=== PATIENT | female | born 1930 | race Caucasian/White ===

== ENCOUNTER 2018-08-25 18:36 | Emergency (ER) | payer MEDICARE, OTHER ==
[~2018-08-25 18:36] MED LIST: AFRIN30 ML; ALDACTONE25 MG PO; ALLERGY25 MG PO; ALPRAZOLAM0.25 M1 PO; AMBIEN5 MG PO; ASPIRIN325 MG PO; ASPIRIN81 M3 PO; CARDURA2 MG PO; CARVEDILOL3.125 MG PO; COUMADIN6 MG PO; FUROSEMIDE20 MG PO; FUROSEMIDE40 MG PO; KLOR-CON M2020 MEQ PO; LACTULOSE20 GM/30 M PO; LISINOPRIL5 MG PO; LORATADINE10 MG PO; LYRICA150 MG PO; METOPROLOL TART25 MG PO; MINOCYCLINE HC100 MG PO; MIRAPEX0.25 MG PO; MIRTAZAPINE15 MG PO; NORCO 5-325 TA1 EACH PO; OMEPRAZOLE20 MG PO; PANTOPRAZOLE SO40 MG PO; PAROXETINE HCL10 MG PO; POTASSIUM CHLO20 ME1 PO; PRAMIPEXOLE D0.25 MG PO; RESTORIL15 MG PO; SINEMET 25-1001 EACH PO; SYNTHROID88 MCG PO; TYLENOL EXTRA500 MG PO; VICODIN 5-5001 EACH PO; WELLBUTRIN75 MG PO; XANAX0.25 MG PO; XARELTO20 MG PO; Z MELATONIN PO; Z.0.AMANTADINE100 MG PO; Z.0.CYMBALTA30 MG PO; Z.0.LISINOPRIL10 MG PO; Z.0.LISINOPRIL5 MG PO; Z.0.METOPROLOL SUCC2 PO; Z.0.NORCO 10-325 T1 PO; Z.0.SYNTHROID100 MCG PO; Z.0.XANAX0.25 MG PO; ZOFRAN4 MG PO; ZOLOFT25 MG PO; [UNRECOGNIZED DRUG - OTHER] PO; [UNRECOGNIZED DRUG - OTHER] TOP; vicoden PO
--- OUTSIDE RECORDS SUMMARY | 2018-08-25 18:41 | XMS REPORT | Summary of Care ---
Author Author [facility] Organization [facility] Address Unknown Phone Unavailable Encounter GERRI Mcmillan(ERVIN) [id number] Date(s): 03/13/15 - 03/18/15 [facility] [address] [employer] provided by [employer] [facility] [employer] [place] [address]- Discharge Disposition: Custodial Facility Attending Physician: Kiara Saucedo MD Admitting Physician: Kiara Saucedo MD Referring Physician: Jose North MD Vital Signs 1 2 3 Most recent to oldest [Reference Range]: 152 cm (03/16/15 5:12 AM) 152.4 cm (03/13/15 3:34 PM) 152.4 cm (03/13/15 3:09 PM) Height 1 2 3 Most recent to oldest [Reference Range]: 45 kg (03/16/15 5:12 AM) 45.2 kg (03/14/15 5:55 AM) Current Weight 1 2 3 Most recent to oldest [Reference Range]: 98.2 DegF (03/18/15 11:53 AM) 97.8 DegF (03/18/15 11:48 AM) 97.6 DegF (03/18/15 7:43 AM) Temperature Oral [96.4-99.1 DegF] 1 2 3 Most recent to oldest [Reference Range]: 119/68 mmHg (03/18/15 11:51 AM) 130/75 mmHg (03/18/15 11:48 AM) 139/84 mmHg (03/18/15 7:43 AM) Blood Pressure [90-140/60-90 mmHg] 1 2 3 Most recent to oldest [Reference Range]: 20 BRMIN (03/18/15 11:51 AM) 20 BRMIN (03/18/15 11:48 AM) 20 BRMIN (03/18/15 7:43 AM) Respiratory Rate [14-20 BRMIN] 1 2 3 Most recent to oldest [Reference Range]: 70 bpm (03/18/15 11:48 AM) 70 bpm (03/18/15 7:43 AM) 70 bpm (03/18/15 3:27 AM) Peripheral Pulse Rate [60-100 bpm] 1 2 3 Most recent to oldest [Reference Range]: 43.182 kg (03/13/15 3:34 PM) 40.909 kg (03/13/15 3:09 PM) 60 kg (03/13/15 10:48 AM) Weight 1 2 3 Most recent to oldest [Reference Range]: 18.59 m2 (03/13/15 3:34 PM) 17.61 m2 (03/13/15 3:09 PM) Body Mass Index Problem List Condition Effective Dates Status Health Status Informant A-fib(Confirmed) Resolved Anxiety(Confirmed) Resolved Cardiac Resolved pacemaker(Confirmed) CHF - Congestive Resolved heart failure(Confirmed) Closed hip Resolved fracture(Confirmed)1 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 (Same as: Tylenol) Start Date: 03/14/15 Stop Date: 03/17/15 Status: Discontinued Aldactone 25 mg oral tablet 25 mg=1 tab, PO, PRN, # 60 tab, 0 Refill(s) Start Date: 03/13/15 Status: Ordered ALPRAZOLam 0.25 mg oral tablet, disintegrating 0.25 mg=1 tab, PO, Q12H, PRN Anxiety, 0 Refill(s) Start Date: 03/13/15 Status: Ordered Benadryl 12.5 mg, 0.25 mL, Route: IV, Drug form: INJ, ONCE, Dosing Weight 60, kg, Start d ate: 03/13/15 14:46:00, Stop date: 03/13/15 14:46:00 Notes: (Same as: Benadryl) Start Date: 03/13/15 Stop Date: 03/13/15 Status: Completed Benadryl 12.5 mg, 5 mL, Route: PO, Drug form: LIQ, TID, Dosing Weight 43.182, kg, PRN Itc daniel, Start date: 03/14/15 1:48:00, Duration: 30 day, Stop date: 04/13/15 1:47:0 0 Notes: (Same as: Benadryl) Start Date: 03/14/15 Stop Date: 03/18/15 Status: Discontinued carbidopa-levodopa 25 mg-100 mg oral tablet 1 tab, PO, QID, 0 Refill(s) Start Date: 03/18/15 Status: Ordered carbidopa-levodopa 25 mg-100 mg oral tablet 1 tab, Route: PO, Drug Form: TAB, Dosing Weight 60, kg, QID, Start date: 5 17:00:00, Duration: 30 day, Stop date: 04/12/15 13:00:00 Notes: Take with milk or food. (Same As: Sinemet) Start Date: 03/13/15 Stop Date: 03/18/15 Status: Discontinued carbidopa-levodopa 25 mg-100 mg oral tablet 1 tab, PO, QID, # 120 tab, 0 Refill(s) Start Date: 03/13/15 Status: Ordered Coreg 12.5 mg oral tablet 12.5 mg=1 tab, PO, BID, # 60 tab, 0 Refill(s) Start Date: 03/18/15 Status: Ordered Dextrose 50% Syringe 12.5 gm, 25 mL, Route: IVP, Drug Form: INJ, Dosing Weight 43.182, kg, PRN, PRN A bnormal Lab Result, Start date: 03/15/15 3:58:00, Duration: 30 day, Stop date: 06/14/14 2:57:00, For FSBG 40 mg/dL - 60 mg/dL Special Instructions: For FSBG 40 mg/dL - 60 mg/dL Start Date: 03/15/15 Stop Date: 03/15/15 Status: Discontinued Dextrose 50% Syringe 25 gm, 50 mL, Route: IVP, Drug Form: INJ, Dosing Weight 43.182, kg, PRN, PRN Abn ormal Lab Result, Start date: 03/15/15 3:58:00, Duration: 30 day, Stop date: 01/19 2:57:00, For FSBG < 40 mg/dL Special Instructions: For FSBG < 40 mg/dL Start Date: 03/15/15 Stop Date: 03/15/15 Status: Discontinued docusate 100 mg, 1 cap, Route: NG, Drug form: CAP, Q12H, Dosing Weight 60, kg, Start date : 03/13/15 21:00:00, Stop date: 04/12/15 9:00:00 Notes: (Same as: Colace) (Do Not Crush) Start Date: 03/13/15 Stop Date: 03/18/15 Status: Discontinued Enoxaparin 20 mg (0.2 mL) Enoxaparin 20 mg (0.2 mL), 20 mg, 0.2 mL, Drug form: MISC, Route: SUB-Q, enoxQ12 H, 03/15/15 12:30:00, Duration: 30 day, Stop date: 04/14/15 0:30:00 Notes: PLEASE NOTE: Using enoxaparin 30 mg syringe, draw up 0.2 mL and put in in jection syringe under IV persaud in sterile conditions. Start Date: 03/15/15 Stop Date: 03/17/15 Status: Discontinued Factor 2-7-9-10 Prothrombin Complex Concentrate 2,208 unit + IV bag 1 ea Route: IV, Drug form: INJ, ONCE, Dosing Weight 60, kg, ; Use 100kg max dosing we ight for pt >100kg. Max. cumulative dose=50 units/kg/day., Priority: STAT, Start date: 03/13/15 11:16:00, Stop date: 03/13/15 11:16:00 Notes: Same as: Benigno Maximum acdp=2090 units; Round down dose to the nearest vial size Hematology clinical pharmacist consult required Start Date: 03/13/15 Stop Date: 03/13/15 Status: Completed Factor 2-7-9-10 Prothrombin Complex Concentrate 2,208 unit + IV bag 1 ea Route: IV, Drug form: INJ, ONCE, Dosing Weight 60, kg, ; Use 100kg max dosing we ight for pt >100kg. Max. cumulative dose=50 units/kg/day., Priority: STAT, Start date: 03/13/15 10:49:00, Stop date: 03/13/15 10:49:00 Notes: Same as: Kcentra Maximum zbhx=1949 units; Round down dose to the nearest vial size Hematology clinical pharmacist consult required Start Date: 03/13/15 Stop Date: 03/13/15 Status: Deleted fosphenytoin 1,200 mg, Route: IVPB, ONCE, Dosing Weight 60, kg, Priority: STAT, Start date: 1 10:51:00, Stop date: 03/13/15 10:51:00 Start Date: 03/13/15 Stop Date: 03/13/15 Status: Completed heparin 5,000 unit, 1 mL, Route: SUB-Q, Drug form: INJ, Q12H, Start date: 03/14/15 10:30 :00, Duration: 30 day, Stop date: 04/13/15 9:00:00 Notes: porcine heparin Start Date: 03/14/15 Stop Date: 03/14/15 Status: Canceled heparin 5000 units/mL injectable solution 5000, SUB-Q, Q12H, # 1 IntlUnit, 0 Refill(s) Start Date: 03/18/15 Status: Ordered heparin 5000 units/mL injectable solution 5,000 unit, 1 mL, Route: SUB-Q, Drug form: INJ, Q12H, Dosing Weight 43.182, kg, Start date: 03/17/15 12:00:00, Duration: 30 day, Stop date: 04/16/15 0:00:00 Notes: porcine heparin Start Date: 03/17/15 Stop Date: 03/18/15 Status: Discontinued influenza virus vaccine, inactivated 0.5 mL, Route: IM, Drug Form: SUSP, Daily, Start date: 03/14/15 9:00:00, Duratio n: 1 doses or times, Stop date: 03/14/15 9:00:00 Notes: (Same as: Fluzone Quadrivalent)For 3 years of age and older (0.5 mL IM)Sh mabel well before use Start Date: 03/14/15 Stop Date: 03/14/15 Status: Completed Insulin regular 12 unit, 0.12 mL, Route: SUB-Q, Drug form: SOLN, PRN, Dosing Weight 43.182, kg, PRN Abnormal Lab Result, Start date: 03/15/15 3:58:00, Duration: 30 day, Stop da te: 04/14/15 2:57:00, For FSBG >=200 mg/dL Special Instructions: For FSBG >=200 mg/dL Notes: (Same as: Humulin R) Roll in palms of hands gently; Do not shake vigorou sly. "single patient use only"(Restricted to patients requiring a dose > 60 units) Stable for 28 days at room temperatureExpires in days from _ Date Start Date: 03/15/15 Stop Date: 03/15/15 Status: Discontinued Insulin regular 8 unit, 0.08 mL, Route: SUB-Q, Drug form: SOLN, PRN, Dosing Weight 43.182, kg, P RN Abnormal Lab Result, Start date: 03/15/15 3:58:00, Duration: 30 day, Stop aria e: 04/14/15 2:57:00, For FSBG 175 mg/dL - 199 mg/dL Special Instructions: For FSBG 175 mg/dL - 199 mg/dL Notes: (Same as: Humulin R) Roll in palms of hands gently; Do not shake vigorou sly. "single patient use only"(Restricted to patients requiring a dose > 60 units) Stable for 28 days at room temperatureExpires in days from _ Date Start Date: 03/15/15 Stop Date: 03/15/15 Status: Discontinued Insulin regular 5 unit, 0.05 mL, Route: SUB-Q, Drug form: SOLN, PRN, Dosing Weight 43.182, kg, P RN Abnormal Lab Result, Start date: 03/15/15 3:58:00, Duration: 30 day, Stop aria e: 04/14/15 2:57:00, For FSBG 150 mg/dL - 174 mg/dL Special Instructions: For FSBG 150 mg/dL - 174 mg/dL Notes: (Same as: Humulin R) Roll in palms of hands gently; Do not shake vigorou sly. "single patient use only"(Restricted to patients requiring a dose > 60 units) Stable for 28 days at room temperatureExpires in days from _ Date Start Date: 03/15/15 Stop Date: 03/15/15 Status: Discontinued Lasix 20 mg oral tablet 20 mg=1 tab, PO, Daily, # 30 tab, 0 Refill(s) Start Date: 03/13/15 Status: Ordered Lasix 20 mg oral tablet 20 mg, 1 tab, Route: PO, Drug form: TAB, Daily, Dosing Weight 60, kg, Start date : 03/14/15 9:00:00, Duration: 30 day, Stop date: 04/12/15 9:00:00 Notes: (Same as: Lasix) May cause GI upset. Give with food or milk. Start Date: 03/14/15 Stop Date: 03/18/15 Status: Discontinued lisinopril 5 mg, 1 tab, Route: PO, Drug form: TAB, Daily, Dosing Weight 60, kg, Start date: 03/14/15 9:00:00, Duration: 30 day, Stop date: 04/12/15 9:00:00 Notes: (Same as: Prinivil, Zestril) Start Date: 03/14/15 Stop Date: 03/18/15 Status: Discontinued lisinopril 5 mg oral tablet 5 mg=1 tab, PO, Daily, # 30 tab, 0 Refill(s) Start Date: 03/13/15 Stop Date: 03/18/15 Status: Discontinued Lovenox 20 mg, 0.2 mL, Route: SUB-Q, Drug form: INJ, [id number], Dosing Weight 43.182, kg, Start date: 03/14/15 10:30:00, Duration: 30 day, Stop date: 04/12/15 22:30:00 Notes: (Same as: Lovenox) Start Date: 03/14/15 Stop Date: 03/15/15 Status: Discontinued Lovenox 30 mg, Route: SUB-Q, Drug form: INJ, [id number], Dosing Weight 43.182, kg, Start d ate: 03/14/15 10:30:00, Duration: 30 day, Stop date: 04/12/15 22:30:00 Start Date: 03/14/15 Stop Date: 03/14/15 Status: Canceled Lyrica 25 mg, 1 cap, Route: PO, Drug form: CAP, Q8H, Dosing Weight 43.182, kg, Start da te: 03/14/15 0:00:00, Duration: 30 day, Stop date: 04/12/15 16:00:00 Notes: (Same as: Lyrica) Start Date: 03/14/15 Stop Date: 03/17/15 Status: Discontinued magnesium sulfate 2 gm, 50 mL, Route: IVPB, Drug form: INJ, ONCE, Dosing Weight 43.182, kg, Total dose=2 gm, Start date: 03/14/15 0:56:00, Duration: 1 doses or times, Stop date: 03/14/15 0:56:00 Start Date: 03/14/15 Stop Date: 03/14/15 Status: Completed morphine Sulfate 4 mg, Route: IVP, Drug form: INJ, ONCE, kg, Priority: STAT, Start date: 03/13/15 10:08:00, Stop date: 03/13/15 10:08:00 Start Date: 03/13/15 Stop Date: 03/13/15 Status: Completed Carlos 10/325 oral tablet 1 tab, PO, Q6H, PRN for pain, 0 Refill(s) Start Date: 03/13/15 Stop Date: 03/18/15 Status: Discontinued Carlos 7.5/325 oral tablet 1 tab, Route: PO, Drug Form: TAB, Dosing Weight 43.182, kg, Q6H, Start date: 04/21 12:00:00, Duration: 30 day, Stop date: 04/16/15 6:00:00 Notes: Same as Carlos 325-7.5mg Do not exceed 4gm/day of acetaminophen. Start Date: 03/17/15 Stop Date: 03/18/15 Status: Discontinued NS (Bolus) IV 500 mL, 500 ml/hr, Infuse Over: 1 hr, Route: IV, 500, Drug form: INJ, ONCE, Prio rity: STAT, Dosing Weight 43.182 kg, Start date: 03/14/15 15:09:00, Duration: 1 doses or times, Stop date: 03/14/15 15:09:00 Start Date: 03/14/15 Stop Date: 03/14/15 Status: Completed nystatin topical 100,000 units/g powder 1 appl, TOP, BID, # 15 gm, 0 Refill(s) Start Date: 03/18/15 Stop Date: 03/22/15 Status: Ordered nystatin topical 100,000 units/g powder 1 appl, Route: TOP, BID, Drug form: PWDR, Start date: 03/16/15 9:00:00, Duration : 30 day, Stop date: 04/14/15 17:00:00 Notes: (Same as:Mycostatin, Nilstat) For external use only. Start Date: 03/16/15 Stop Date: 03/18/15 Status: Discontinued Ofirmev 1,000 mg, 100 mL, Route: IV, Drug form: INJ, Q6H, Dosing Weight 43.182, kg, for > or=50 kg, Start date: 03/14/15 19:00:00, Duration: 30 day, Stop date: 04/13/15 18:00:00 Notes: Infuse over 15 minutesDo not exceed 4gm/day of acetaminophen MEDICAT ION WASTE Product Size: 1000 mgProduct Wasted: ___ mg Start Date: 03/14/15 Stop Date: 03/14/15 Status: Canceled oxyCODONE 5 mg immediate release 5 mg, 1 tab, Route: PO, Drug form: TAB, Q6H, Dosing Weight 43.182, kg, PRN Pain Score 4-6, Start date: 03/14/15 9:40:00, Duration: 30 day, Stop date: 04/13/15 9 :39:00 Notes: (Same as: Roxicodone) Start Date: 03/14/15 Stop Date: 03/17/15 Status: Discontinued oxyCODONE 5 mg immediate release 5 mg, 1 tab, Route: PO, Drug form: TAB, Q6H, Dosing Weight 43.182, kg, Start aria e: 03/14/15 0:00:00, Duration: 30 day, Stop date: 04/12/15 18:00:00 Notes: (Same as: Roxicodone) Start Date: 03/14/15 Stop Date: 03/14/15 Status: Discontinued phenytoin 100 mg, 1 cap, Route: PO, Drug form: ERCAP, Q12H, Dosing Weight 43.182, kg, Star t date: 03/14/15 21:00:00, Duration: 6 day, Stop date: 03/20/15 9:00:00 Notes: (Same as: Dilantin) Do not open, crush, or chew. Start Date: 03/14/15 Stop Date: 03/18/15 Status: Discontinued phenytoin 100 mg, 2 mL, Route: IV, Drug form: INJ, Q8H, Dosing Weight 60, kg, Start date: 03/13/15 19:00:00, Duration: 30 day, Stop date: 04/12/15 16:00:00 Notes: (Same as: Dilantin) Do not infuse greater than 50 mg/min. MEDICATION WASTE Product Size: 100 mgProduct Wasted: ___ mg Start Date: 03/13/15 Stop Date: 03/14/15 Status: Discontinued phenytoin 100 mg oral capsule, extended release 100 mg=1 cap, PO, Q12H, PRN Pain Score 6-10, # 30 cap, 0 Refill(s) Start Date: 03/18/15 Stop Date: 03/31/15 Status: Ordered PlasmaLyte A PH-7.4 (Bolus) IV 500 mL, 500 ml/hr, Route: IV, Drug Form: INJ, Dosing Weight 43.182, kg, ONCE, St art date: 03/13/15 20:40:00, Stop date: 03/13/15 20:40:00 Start Date: 03/13/15 Stop Date: 03/13/15 Status: Completed pneumococcal 23-valent vaccine 0.5 mL, Route: IM, Drug Form: INJ, Daily, Start date: 03/14/15 9:00:00, Duration : 1 doses or times, Stop date: 03/14/15 9:00:00 Notes: (Same as: Pneumovax 23) Refrigerate Start Date: 03/14/15 Stop Date: 03/14/15 Status: Completed potassium chloride 20 mEq oral tablet, extended release 20 mEq=1 tab, PO, Daily, # 30 tab, 3 Refill(s) Start Date: 03/13/15 Status: Ordered pramipexole 0.25 mg, 1 tab, Route: PO, Drug form: TAB, TID, Dosing Weight 60, kg, Start date : 03/13/15 17:00:00, Duration: 30 day, Stop date: 04/12/15 13:00:00 Notes: (Same as: Mirapex) Start Date: 03/13/15 Stop Date: 03/18/15 Status: Discontinued pramipexole 0.25 mg oral tablet 0.25 mg=1 tab, PO, TID, # 90 tab, 0 Refill(s) Start Date: 03/13/15 Status: Ordered Senna 187mg 1 tab, Route: PO, Dosing Weight 43.182, kg, BID, Start date: 03/14/15 17:00:00, Duration: 30 day, Stop date: 04/13/15 9:00:00 Start Date: 03/14/15 Stop Date: 03/14/15 Status: Discontinued senna 8.6 mg oral tablet 17.2 mg=2 tab, PO, Q12H, # 12 tab, 0 Refill(s) Start Date: 03/18/15 Stop Date: 03/24/15 Status: Ordered Senokot 17.2 mg, 2 tab, Route: PO, Drug form: TAB, Q12H, Start date: 03/14/15 21:00:00, Duration: 30 day, Stop date: 04/13/15 9:00:00 Notes: (Same as: Senokot) Start Date: 03/14/15 Stop Date: 03/18/15 Status: Discontinued Synthroid 112 microgram, 1 tab, Route: PO, Drug form: TAB, [id number], Dosing Weight 60, kg, S tart date: 03/14/15 6:30:00, Duration: 30 day, Stop date: 04/12/15 6:30:00 Notes: Take 1 hour before or 2 hours after meal; Enteral feeds may interefere wi th the absorption of this medication.(Same as:Levothroid) Start Date: 03/14/15 Stop Date: 03/18/15 Status: Discontinued Synthroid 112 mcg (0.112 mg) oral tablet 112 microgram=1 tab, PO, Daily, # 30 tab, 0 Refill(s) Start Date: 03/13/15 Status: Ordered tramadol 50 mg, 1 tab, Route: PO, Drug form: TAB, Q6H, Dosing Weight 43.182, kg, Start da te: 03/14/15 0:00:00, Duration: 30 day, Stop date: 04/12/15 18:00:00 Notes: Not to exceed 400mg/day. (Same As: Ultram) Start Date: 03/14/15 Stop Date: 03/18/15 Status: Discontinued tramadol 100 mg oral tablet, extended release 100 mg=1 tab, PO, Q8H, PRN Pain Score 6-10, # 24 tab, 0 Refill(s) Start Date: 03/18/15 Status: Ordered tramadol 100 mg oral tablet, extended release 100 mg=1 tab, PO, ABXQ8H, PRN Pain Score 6-10, # 24 tab, 0 Refill(s) Start Date: 03/18/15 Stop Date: 03/18/15 Status: Discontinued Tylenol 650 mg, 2 tab, Route: PO, Drug form: TAB, Q6H, Dosing Weight 43.182, kg, PRN For Temp > 100.4 F, Start date: 03/13/15 16:27:00, Duration: 30 day, Stop date: 04/12/15 16:26:00 Notes: Do not exceed 4 gm/day. (Same as: Tylenol) Start Date: 03/13/15 Stop Date: 03/13/15 Status: Discontinued Visipaque 320mg/ml 90 mL, Route: IVP, Drug Form: SOLN, kg, ONCALL, STAT, Start date: 03/13/15 10:03 :00, Duration: 1 doses or times, Dose=2.2ml/kg, Max [id number] -- "To be infuse d by Radiology Staff ONLY" Special Instructions: Dose=2.2ml/kg, Max [id number] -- "To be infused by Radiol ogy Staff ONLY" Start Date: 03/13/15 Stop Date: 03/13/15 Status: Completed Xarelto 15 mg oral tablet 15 mg=1 tab, PO, Daily, 3 Refill(s) Start Date: 03/13/15 Stop Date: 03/18/15 Status: Discontinued Zofran 4 mg, Route: IVP, Drug form: INJ, ONCE, kg, Priority: STAT, Start date: 03/13/15 10:08:00, Stop date: 03/13/15 10:08:00 Start Date: 03/13/15 Stop Date: 03/13/15 Status: Completed Results ELECTROLYTES 1 2 3 Most recent to oldest [Reference Range]: 136 mEq/L (03/15/15 3:44 AM) 143 mEq/L (03/14/15 12:15 AM) 140 mEq/L (03/13/15 8:34 PM) Sodium Lvl [135-145 mEq/L] 3.7 mEq/L (03/15/15 3:44 AM) 3.7 mEq/L (03/14/15 12:15 AM) 3.4 mEq/L *LOW* (03/13/15 8:34 PM) Potassium Lvl [3.5-5.1 mEq/L] 99 mEq/L (03/15/15 3:44 AM) 104 mEq/L (03/14/15 12:15 AM) 102 mEq/L (03/13/15 8:34 PM) Chloride Lvl [95-109 mEq/L] 29 mEq/L (03/15/15 3:44 AM) 31 mEq/L (03/14/15 12:15 AM) 30 mEq/L (03/13/15 8:34 PM) CO2 [24-32 mEq/L] 11.7 mEq/L (03/15/15 3:44 AM) 11.7 mEq/L (03/14/15 12:15 AM) 11.4 mEq/L (03/13/15 8:34 PM) AGAP [10.0-20.0 mEq/L] CHEM PANEL 1 2 3 Most recent to oldest [Reference Range]: 0.9 mg/dL (03/15/15 3:44 AM) 1.1 mg/dL (03/14/15 12:15 AM) 1.0 mg/dL (03/13/15 8:34 PM) Creatinine Lvl [0.5-1.4 mg/dL] 59 mL/min/1.73m2 1 *NA* (03/15/15 3:44 AM) 46 mL/min/1.73m2 2 *NA* (03/14/15 12:15 AM) 54 mL/min/1.73m2 3 *NA* (03/13/15 8:34 PM) eGFR 19 mg/dL (03/15/15 3:44 AM) 14 mg/dL (03/14/15 12:15 AM) 12 mg/dL (03/13/15 8:34 PM) BUN [7-22 mg/dL] 99 mg/dL (03/15/15 3:44 AM) 130 mg/dL *HI* (03/14/15 12:15 AM) 141 mg/dL *HI* (03/13/15 8:34 PM) Glucose Lvl [70-99 mg/dL] 8.6 mg/dL (03/15/15 3:44 AM) 8.8 mg/dL (03/14/15 12:15 AM) 9.1 mg/dL (03/13/15 8:34 PM) Calcium Lvl [8.5-10.5 mg/dL] 2.2 mg/dL *LOW* (03/15/15 3:44 AM) 4.1 mg/dL (03/14/15 12:15 AM) 3.5 mg/dL (03/13/15 8:34 PM) Phosphorus [2.5-4.5 mg/dL] 2.2 mg/dL (03/15/15 3:44 AM) 1.8 mg/dL (03/14/15 12:15 AM) 1.6 mg/dL *LOW* (03/13/15 8:34 PM) Magnesium Lvl [1.8-2.4 mg/dL] 1Result Comment: The eGFR is calculated using the CKD-EPI formula. In most young, healthy individuals the eGFR will be >90 mL/min/1.73m2. The eGFR declines with age. An eGFR of 60-89 may be normal in some populations, particularly the elderly, for whom the CKD-EPI formula has not been extensively validated. Use of the eGFR is not recommended in the following populations: Individuals with unstable creatinine concentrations, including patients and those with serious co-morbid conditions. Patients with extremes in muscle mass or diet. The data above are obtained from the National Kidney Disease Education Program ( NKDEP) which additionally recommends that when the eGFR is used in patients with extremes of body mass index for purposes of drug dosing, the eGFR should be mul tiplied by the estimated BMI. 2Result Comment: The eGFR is calculated using the CKD-EPI formula. In most young, healthy individuals the eGFR will be >90 mL/min/1.73m2. The eGFR declines with age. An eGFR of 60-89 may be normal in some populations, particularly the elderly, for whom the CKD-EPI formula has not been extensively validated. Use of the eGFR is not recommended in the following populations: Individuals with unstable creatinine concentrations, including patients and those with serious co-morbid conditions. Patients with extremes in muscle mass or diet. The data above are obtained from the National Kidney Disease Education Program ( NKDEP) which additionally recommends that when the eGFR is used in patients with extremes of body mass index for purposes of drug dosing, the eGFR should be mul tiplied by the estimated BMI. 3Result Comment: The eGFR is calculated using the CKD-EPI formula. In most young, healthy individuals the eGFR will be >90 mL/min/1.73m2. The eGFR declines with age. An eGFR of 60-89 may be normal in some populations, particularly the elderly, for whom the CKD-EPI formula has not been extensively validated. Use of the eGFR is not recommended in the following populations: Individuals with unstable creatinine concentrations, including patients and those with serious co-morbid conditions. Patients with extremes in muscle mass or diet. The data above are obtained from the National Kidney Disease Education Program ( NKDEP) which additionally recommends that when the eGFR is used in patients with extremes of body mass index for purposes of drug dosing, the eGFR should be mul tiplied by the estimated BMI. PARATHYROID PROFILE 1 2 3 Most recent to oldest [Reference Range]: 1.08 mMol/L (03/15/15 3:44 AM) 1.08 mMol/L (03/14/15 12:15 AM) 1.06 mMol/L (03/13/15 9:06 PM) Ca Ion WB [1.05-1.25 mMol/L] 1.12 mMol/L (03/15/15 3:44 AM) 1.06 mMol/L (03/14/15 12:15 AM) 1.04 mMol/L *LOW* (03/13/15 9:06 PM) Ca Norm WB [1.05-1.25 mMol/L] URINE AND STOOL 1 2 3 Most recent to oldest [Reference Range]: Clear (03/13/15 8:34 PM) UA Turbidity [Clear] Yellow *NA* (03/13/15 8:34 PM) UA Color [Yellow] 6.5 (03/13/15 8:34 PM) UA pH [5.0-8.0] >=1.050 *ABN* (03/13/15 8:34 PM) UA Spec Grav [<=1.030] Negative mg/dL *NA* (03/13/15 8:34 PM) UA Glucose [Negative mg/dL] Trace *ABN* (03/13/15 8:34 PM) UA Blood [Negative] 10 mg/dL *ABN* (03/13/15 8:34 PM) UA Ketones [Negative mg/dL] 100 mg/dL *ABN* (03/13/15 8:34 PM) UA Protein [Negative mg/dL] 2.0 mg/dL *HI* (03/13/15 8:34 PM) UA Urobilinogen [0.1-1.0 mg/dL] Negative *NA* (03/13/15 8:34 PM) UA Bili [Negative] Negative (03/13/15 8:34 PM) UA Leuk Est [Negative] Negative (03/13/15 8:34 PM) UA Nitrite [Negative] 5 /HPF (03/13/15 8:34 PM) UA WBC [0-5 /HPF] 9 /HPF *HI* (03/13/15 8:34 PM) UA RBC [0-2 /HPF] Few /HPF *NA* (03/13/15 8:34 PM) UA Bacteria [None Seen /HPF] Occasional /LPF *NA* (03/13/15 8:34 PM) UA Sq Epi [Few /LPF] Few /LPF *NA* (03/13/15 8:34 PM) UA Mucus [None Seen /LPF] Occasional /HPF *ABN* (03/13/15 8:34 PM) UA [place] Yeast [None Seen /HPF] Performed *NA* (03/13/15 8:34 PM) Micro? HEMATOLOGY 1 2 3 Most recent to oldest [Reference Range]: 8.6 K/CMM (03/15/15 3:44 AM) 14.5 K/CMM *HI* (03/14/15 12:15 AM) 18.2 K/CMM *HI* (03/13/15 8:34 PM) WBC [3.7-10.4 K/CMM] 4.46 M/CMM (03/15/15 3:44 AM) 5.22 M/CMM (03/14/15 12:15 AM) 5.33 M/CMM (03/13/15 8:34 PM) RBC [4.20-5.40 M/CMM] 11.5 g/dL *LOW* (03/15/15 3:44 AM) 13.3 g/dL (03/14/15 12:15 AM) 13.7 g/dL (03/13/15 8:34 PM) Hgb [12.0-16.0 g/dL] 35.7 % *LOW* (03/15/15 3:44 AM) 42.2 % (03/14/15 12:15 AM) 42.8 % (03/13/15 8:34 PM) Hct [36.0-48.0 %] 79.9 fL *LOW* (03/15/15 3:44 AM) 80.8 fL (03/14/15 12:15 AM) 80.4 fL (03/13/15 8:34 PM) MCV [80.0-98.0 fL] 25.7 pg *LOW* (03/15/15 3:44 AM) 25.4 pg *LOW* (03/14/15 12:15 AM) 25.7 pg *LOW* (03/13/15 8:34 PM) MCH [27.0-31.0 pg] 32.1 g/dL (03/15/15 3:44 AM) 31.5 g/dL *LOW* (03/14/15 12:15 AM) 31.9 g/dL 4 *LOW* (03/13/15 8:34 PM) MCHC [32.0-36.0 g/dL] 15.5 % *HI* (03/15/15 3:44 AM) 15.4 % *HI* (03/14/15 12:15 AM) 15.2 % *HI* (03/13/15 8:34 PM) RDW [11.5-14.5 %] 193 K/CMM (03/15/15 3:44 AM) 200 K/CMM (03/14/15 12:15 AM) 219 K/CMM (03/13/15 8:34 PM) Platelet [133-450 K/CMM] 9.1 fL (03/15/15 3:44 AM) 9.3 fL (03/14/15 12:15 AM) 9.3 fL (03/13/15 8:34 PM) MPV [7.4-10.4 fL] 68.1 % (03/15/15 3:44 AM) 94.5 % *HI* (03/14/15 12:15 AM) 96.2 % *HI* (03/13/15 8:34 PM) Segs [45.0-75.0 %] 10.6 % *LOW* (03/15/15 3:44 AM) 1.4 % *LOW* (03/14/15 12:15 AM) 0.7 % *LOW* (03/13/15 8:34 PM) Lymphocytes [20.0-40.0 %] 10.3 % (03/15/15 3:44 AM) 3.3 % (03/14/15 12:15 AM) 2.6 % (03/13/15 8:34 PM) Monocytes [2.0-12.0 %] 10.8 % *HI* (03/15/15 3:44 AM) 0.6 % (03/14/15 12:15 AM) 0.1 % (03/13/15 8:34 PM) Eosinophils [0.0-4.0 %] 0.2 % (03/15/15 3:44 AM) 0.2 % (03/14/15 12:15 AM) 0.4 % (03/13/15 8:34 PM) Basophils [0.0-1.0 %] 5.7 K/CMM (03/15/15 3:44 AM) 13.7 K/CMM *HI* (03/14/15 12:15 AM) 17.5 K/CMM *HI* (03/13/15 8:34 PM) Segs-Bands # [1.5-8.1 K/CMM] 0.9 K/CMM *LOW* (03/15/15 3:44 AM) 0.2 K/CMM *LOW* (03/14/15 12:15 AM) 0.1 K/CMM *LOW* (03/13/15 8:34 PM) Lymphocytes # [1.0-5.5 K/CMM] 0.9 K/CMM *HI* (03/15/15 3:44 AM) 0.5 K/CMM (03/14/15 12:15 AM) 0.5 K/CMM (03/13/15 8:34 PM) Monocytes # [0.0-0.8 K/CMM] 0.9 K/CMM *HI* (03/15/15 3:44 AM) 0.1 K/CMM (03/14/15 12:15 AM) Eosinophils # [0.0-0.5 K/CMM] 0.1 K/CMM (03/13/15 8:34 PM) Basophils # [0.0-0.2 K/CMM] 1+ *ABN* (03/15/15 3:44 AM) Microcyte [None Seen] 16.1 seconds *HI* (03/14/15 6:08 AM) 19.3 seconds *HI* (03/13/15 10:52 AM) PT [12.0-14.7 seconds] 1.26 *HI* (03/14/15 6:08 AM) 1.59 *HI* (03/13/15 10:52 AM) INR [0.85-1.17] 33.8 seconds (03/14/15 6:08 AM) 32.0 seconds (03/13/15 10:52 AM) PTT [22.9-35.8 seconds] Citrated Whole Blood (03/13/15 9:53 AM) Rapid TEG Sample Type 121 seconds *HI* (03/13/15 9:53 AM) ACT (TEG) [86-118 seconds] 0.7 minutes *NA* (03/13/15 9:53 AM) Split Point 0.8 minutes *HI* (03/13/15 9:53 AM) R-time [0.4-0.7 minutes] 0.8 minutes (03/13/15 9:53 AM) K-time [0.6-2.3 minutes] 79 degrees (03/13/15 9:53 AM) Angle [64-80 degrees] 78 mm *HI* (03/13/15 9:53 AM) Max Amp [52-71 mm] 17.5 K d/sc *HI* (03/13/15 9:53 AM) G-value [5.0-11.6 K d/sc] 3.4 % 5 (03/13/15 9:53 AM) Estimated % Lysis [0.0-7.5 %] 4Result Comment: rechecked. 5Result Comment: "Significant Findings called to angeles santos_at 03/13/2015 10:59__bypm ___.Read Back OK." Immunizations Vaccine Date Refusal Reason influenza virus vaccine, inactivated 03/14/15 Patient Refuses pneumococcal 23-valent vaccine 03/14/15 Patient Refuses Procedures No data available for this section Social History Social History Type Response Smoking Status Never smoker; Exposure to Tobacco Smoke None; Cigarette Smoking Last 365 Days No; Reg Smoking Cessation Counseling No Assessment and Plan Extracted from: Title: Clinical Document Author: Sara Jordan NP Date: 03/18/15 Date of Admission: 03/13/15 Date of Discharge: 03/18/15 Admitting Attending: Dr Saucedo Admission diagnosis: Fall from standing SDH-RT Frontoparietal SDH Rib Fracture Clavicle Fracture Hand Fracture Discharge Diagnoses: Fall from standing SDH-RT Frontoparietal SDH Rib Fracture Clavicle Fracture Hand Fracture In House Consultations: ORS,ORS(hand), NSGY,Cardiology,Neuro Spine Surgeries and Procedures: No surgeries.RT hand splinted with dorsal volar flap History and hospital course: 85 year old female w/ extensive PMH as shown below presents as Level 2 consult, after transfer from [facility], where she was taken by her son after a fall from standing at 1 am on the day of presentation; she did hit her head and was without loss of consciousness. Her baseline mental faculties are good, and she remained fully oriented after the accident. Imaging performed at [facility] revealed 2 mm R frontoparietal SDH, and acute rib 1 fractures. She did not receive tomography of her chest abdomen pelvis at the OSH. The remainder of his hospital course was without complications. Repeated labs remained stable. The patient was tolerating an oral diet, pain was controlled with oral pain medications, voiding w/o difficulty, and passing regular bowel movements. She was ambulating with assist from PT and RW and above goal on his IS. At this time all consulting services agreed pt to dc SNF. She was instructed to notify all treating physicians if he develops fever, shortness of breath, pain that is not controlled on prescription pain medications, severe or worsening headache, numbness or tingling in her extremity Pt was seen by the Cardiology due to pts h/o Afib and was on xerelto, which was held due to SDH - RECOMMENDATIONS: - Can consider starting Coreg if BP tolerates. Can continue lasix and hold lisinopril if needed. - Start aspirin 325 mg daily- Have patient follow-up with outpatie Disposition: SNF Condition: stable Diet: regular Discharge medications: Please see home medication reconciliation form Activity: NWB RUE Special Instructions:.Ineffective IS- 250/750 goal- CXR without e/o infiltrates or effusions, poor IS likely 2/2 poor effort.encouraged IS, trained pt and family members at bedside on use and stressed importance to pt's recovery. .Pts blood pressure stable started on Coreg as per cardiology recommendation and held lisinopril.Pt also to continue aspirin 325 mgs po daily.On heparin SQ Q12hrs for DVT prophylaxia.Pts repeat head CT was stable. Follow-ups: 1.ORS- follow up with Dr. Rai on Mar 28, 2015. Call [phone] for appointment. 2. Cardiology -RECOMMENDATIONS: - Can consider starting Coreg if BP tolerates. Can continue lasix and hold lisinopril if needed. - Start aspirin 325 mg daily - Have patient follow-up with outpatient School Counsellor to further discuss risk/benefits of anticoagulation vs bleeding. 3.ORS Hand- Weight bearing status: NWB RUE- Follow up with Dr. Bonner 1 week after discharge 4.Trauma- The patient should follow up in neurotrauma clinic in two weeks with a head CT ([phone]). Sara Jordan [facility] [id number] Extracted from: Title: Clinical Document Author: Sara Jordan MANAGER OF [employer] Date: 03/18/15 Trauma Surgery Floor Progress Note: Today's Date: 03/18/15 Hospital Day # 6 Chief Complaint: " RT hand/back pain.I am ready to go to SNF " Overnight Events: No acute events Brief History of Admission: 85 year old female w/ extensive PMH as shown below presents as Level 2 consult, after transfer from [facility], where she was taken by her son after a fall from standing at 1 am on the day of presentation; she did hit her head and was without loss of consciousness. Her baseline mental faculties are good, and she remained fully oriented after the accident. Imaging performed at [facility] revealed 2 mm R frontoparietal SDH, and acute rib 1 fractures. She did not receive tomography of her chest abdomen pelvis at the OSH. Tertiary: Tertiary exam completed by Dr Gen Padilla on 03/17 In Hospital Operations: None Daily Events: sticu- Repeat CT head, ORS hand consult, pain management 03/14: transfered to floor from STICU, found to be hypotensive to SBP 80s, received 500cc NS bolus 03/18- transfer to SNF. Physical Examination/Findings: 24 Hr Vital Signs: BP: 129-148 / 66-76 HR: 70 RR: 18-20 O2:94-97% Tmax: 97.9 Tcurrent: 98.2 Pain:4. Location: Rt hand/ lower back. Constitutional/Neuro/Psych: GCS: Eye 4 Verbal 5 Motor: 6 Total: 15 Sensation: gross sensory intact Judgement: appropriate Orientation: AAOX3 Memory/mood: WNL Medications: 03/17/15 acetaminophen-hydrocodone (Carlos 7.5/325 oral tablet) 1 tab PO Q6H 03/13/15 carbidopa-levodopa (carbidopa-levodopa 25 mg-100 mg oral tablet) 1 tab PO QID 03/14/15 phenytoin 100 mg PO Q12H 03/13/15 pramipexole 0.25 mg PO TID 03/14/15 tramadol 50 mg PO Q6H PRN- 03/14/15 diphenhydrAMINE (Benadryl) 12.5 mg PO TID X0 HEENT: Eyes: EOMs intact, no foreign bodies Conjuctiva and Eye lids: clear, intact. Pupils: round and equal Ears and Nose: Gross hearing intact; nose non-tender, nares patent Lips and Teeth: No lesions, dentition intact Neck: supple, non-tender meds-03/14/15 levothyroxine (Synthroid) 112 microgram PO Q630AM Cardiovascular: Cardiac examination: Regular rate and rhythm Extremity Edema: No extremity edema Pulse exam: LUE 2+ RUE 2+ LLE 2+ RLE 2+ Medications:03/14/15 furosemide (Lasix 20 mg oral tablet) 20 mg PO Daily 03/14/15 lisinopril 5 mg PO Daily Pulmonary: CXR: none today. Chest examination: Lungs CTAB, unlabored breathing, chest -mild tenderness to rt uper chest/shoulder IS: 250/750 goal- CXR without e/o infiltrates or effusions, poor IS likely 2/2 poor effort Medications: GI/Nutrition: Abdominal exam: No tenderness, masses, or hernias; + Bowel sounds, + flatus Last BM: 0x24 hrs Type of Diet: Oral, Regular Medications:03/13/15 docusate 100 mg NG Q12H 03/14/15 senna (Senokot) 17.2 mg PO Q12H Genitourinary: no labs: Female external genitalia: WNL, voiding 24 Hour Ins/Outs: 750/ x7 count 24 Hour Urine Output: x7 count Infectious Disease/Hematology: Tmax: 97.9 no labs Antibiotics: none Antifungal- 03/16/15 nystatin topical (nystatin topical 100,000 units/g powder) 1 appl TOP BID_ DVT prophylaxis: 03/17/15 heparin (heparin 5000 units/mL injectable solution) 5,000 unit SUB-Q Q12H Endocrine: Glucose range: 85-145 24 Hour Insulin requirements: none Musculoskeletal/Skin: Activity: OOB w/ assistance Weightbearing status: NWB RUE Skin/wound examination: no abrasions noted, skin warm and dry Extremity examination: 2+ distal pulses, RUE unable to examine pulse, fingers moving minimally limited by pain and dressings Disposition:SNF PT/OT Plan: will continue inpatient therapy SW Plan: paperwork sent to [facility] (facility from which pt presented) on Thursday 03/15, expect response Sunday 03/18 CM Plan: Discharge To : shelter unit Follow Ups: 1.ORS- follow up with Dr. Rai on Mar 28, 2015. Call [phone] for appointment. 2. Cardiology -RECOMMENDATIONS: - Can consider starting Coreg if BP tolerates. Can continue lasix and hold lisinopril if needed. - Start aspirin 325 mg daily - Have patient follow-up with outpatient School Counsellor to further discuss risk/benefits of anticoagulation vs bleeding. 3.ORS Hand- Weight bearing status: NWB RUE- Follow up with Dr. Bonner 1 week after discharge 4.Trauma- The patient should follow up in neurotrauma clinic in two weeks with a head CT ([phone]). Assessment and Plan: 85 year old F status post fall from standing. Injuries and plan as follows: Injuries: Consults/Plans: 1. R frontoparietal SDH1. repeat CT head stable, okay to begin anticoagulation per NSGY 2. R Metacarpal 3 fx2. Right hand splinted with dorsal/volar slab in intrinsic plus, f/u final ORS surgical plan 3. R distal clavicle fx3. Right arm in sling for comfort, f/u final ORS surgical plan 4. Rib fx: R post 1-3, R ant rib 4, L rib 2,3,5 4. VEP, IS, MMP 5.PMH of Afib Additionally... 1. Acute trauma pain- on po tramadol and Carlos.c/o pain lower back-instructed to get OOB as tolerated with restrictions. 2. Acute blood loss anemia- stable now. 3.DVT prophylaxis- change lovenox to subq heparin per pharmacy recs.Contacted SNF and spoke to start pt on Aspirin 325 mgs daaily. 4.Ineffective IS- 250/750 goal- CXR without e/o infiltrates or effusions, poor IS likely 2/2 poor effort.encouraged IS, trained pt and family members at bedside on use and stressed importance to pt's recovery. 5.Pts blood pressure stable started on Coreg as per cardiology recommendation and held lisinopril Sara Jordan [facility] [id number] Addendum NONE by Sara Jordan MANAGER OF [employer] on 03/18/2015 23:21 Extracted from: Title: [place] Cardiology Follow-up Note Author: Minda Sanz DO Date: 03/16/15 Progress Note - Daily [facility] Completed: Mar, 07:28 by Minda Sanz DO RM: [id number] - 02, 8NJPPSONA ARAMBULA M85y (: 1930) F Attending: Kiara Saucedo MDPhone: Service: General Surgery Service Reason for Admission: SDH S/P FALL Working DRG: Traumatic stupor & coma, coma <1 hr w CC Code status: None Specified=FULL CODECurrent diet: Isolation: None Documented Allergies: morphine SUBJECTIVE No acute events overnight. Patient denies any chest pain or SOB. EKG and pacemaker interrogation has been done. ECHO still pending. Patient reports about 5 falls in the past 6-8 weeks. OBJECTIVE Gen: awake, laying in bed, no acute distress HEENT: EOMI, PERRL, MMM CV:RRR, nml s1 and s2, no extra heart sounds or murmurs Resp: CTAB, no increased WOB on RA Abd: NT, ND, soft, bowel sounds throughout MSK:right hand splinted, right arm in sling, moves all extremities, pulses 2+ throughout, trace pedal edema Neuro: CN2-12 intact, AAO x 4, masked facies Skin: no rashes, +ecchymoses (no lab data in past 24 hours) Powell still necessary (Yes/No): Line still necessary (Yes/No): VitalsTmp(F)[id number] 03/16 07:27----[id number]--- 03/16 04:[id number]--- 03/16 01:49 98 21% 03/15 23:[id number]--- 03/15 21:21 95--- 24 Hr Tmax: 98.2F (36.78c) at 03/15 23:36Vital Signs are the last 5 in the past 48 hours. DateWt(kg)Wt(lb)Ht(cm)Ht(in)Method 03/16 45.00 99.17047.00 59.84Measured 03/14 45.20 99.44Measured 03/13 (initial) 40.91 90.77991.40 60.00Estimated I&ORecordInOutBal 03/924hr Tot 905 0 [phone] 03/824hr Tot [phone] Medications (15) Active Scheduled Meds (13): 03/14/15 acetaminophen 650 mg PO Q6H 03/13/15 carbidopa-levodopa (carbidopa-levodopa 25 mg-100 mg oral tablet) 1 tab PO QID 03/13/15 docusate 100 mg NG Q12H 03/14/15 furosemide (Lasix 20 mg oral tablet) 20 mg PO Daily 03/14/15 levothyroxine (Synthroid) 112 microgram PO Q630AM 03/14/15 lisinopril 5 mg PO Daily 03/15/15 non-formulary (Enoxaparin 20 mg (0.2 mL)) 20 mg SUB-Q [id number] 0 ml/hr 03/16/15 nystatin topical (nystatin topical 100,000 units/g powder) 1 appl TOP BID 03/14/15 phenytoin 100 mg PO Q12H 03/13/15 pramipexole 0.25 mg PO TID 03/14/15 pregabalin (Lyrica) 25 mg PO Q8H 03/14/15 senna (Senokot) 17.2 mg PO Q12H 03/14/15 tramadol 50 mg PO Q6H Unscheduled Meds: None PRN Meds (2): 03/14/15 diphenhydrAMINE (Benadryl) 12.5 mg PO TID 03/14/15 oxyCODONE (oxyCODONE 5 mg immediate release) 5 mg PO Q6H One Time Meds: None Continuous Infusions: None EKG and Pacemaker Interrogation reviewed. ASSESSMENT & EXAM Ms. Vincent is a 85 yo woman with PMH of atrial fibrillation on xarelto, HTN, CHF, Parkinson's and hypothyroidism who presents as transfer from OSH s/p fall who sustained right subdural hemorrhage, right clavical fracture, multiple rib fractures, and right metacarpal fracture. Cardiology consulted for anticoagulation for atrial fibrillation s/p subdural hemorrhage. While patient has a high [id number] (>5), her HAS-BLED score is also very high (score of 5, risk of bleed 9.1% per year). Patient has had about 5 falls in the past 6-8 weeks. She has high risk for additional falls (given her previous fall, Parkinson's, and lives with her 87yo ). EKG Revealed ventricular paced rhythm with no obvious abnormalities. [employer] Pacemaker interrogation revealed VVIR mode with a lower rate limit of 70. ECHO revealed grossly sufficient systolic function, official read pending. We discussed with patient and her family regarding the risk-benefit ratio of anticoagulating for atrial fibrillation vs risk of additional bleeds. At this time, the patient does not want to continue with anticoagulation. Ultimately, we recommend daily aspirin 325 mg PO daily in this patient. We do not recommend further anticoagulation at this time (either w/ xarelto or coumadin). RECOMMENDATIONS: - F/U Final ECHO results - Can consider starting Coreg if BP tolerates. Can continue lasix and hold lisinopril if needed. - Start aspirin 325 mg daily - Have patient follow-up with outpatient School Counsellor to further discuss risk/benefits of anticoagulation vs bleeding. Thank you for the interesting consult. Case was discussed with Dr. Mei on rounds. Please contact the [place] Cardiology consult team for any further questions. Minda Sanz MSO: [phone] Pager: [phone] Med-Peds PGY-3 I saw the patient (interview and examination), reviewed the available diagnostic and imaging data, discussed the findings with the resident, and agree with this note. Thank you for the opportunity to participate in the care of [place] [phone] with any questions related to the care of this patient. Giuliano Mei MD
--- OUTSIDE RECORDS SUMMARY | 2018-08-25 18:41 | XMS REPORT | Continuity of Care Document ---
Author Author Anurag hollyann Organization Interface Address Unknown Phone Unavailable Problems Problem Status Onset Date Classification Date Reported Comments Source I48.2 Active 08/19/2015 [facility] PRE ADMIT/*GEN ANESTHESIA*/WATCHMAN YG Active 07/31/2015 [facility] AFIB Active 07/31/2015 [facility] CHRONIC AFIB Active 07/12/2015 [facility] M79.641 - PAIN IN RIGHT HAND Active 03/21/2015 [facility] SDH S/P FALL Active 03/13/2015 [facility] A-fib Resolved Problem 09/27/2015 [facility] T[facility] Hassan Anxiety Resolved Problem 09/27/2015 [facility], T[facility] Hassan Cardiac pacemaker Resolved Problem 09/27/2015 [facility], TUNG Hassan CHF - Congestive heart failure Resolved Problem 09/27/2015 [facility] Hassan Closed hip fracture<sup>1</sup> Resolved Problem 09/27/2015 bilateral [facility] TUN[facility] Hassan CVA (<span [id number]</span>) Resolved Problem 09/27/2015 [facility], TUNG Hassan Dementia Resolved Problem 09/27/2015 [facility], TUNG Hassan Parkinson's disease Resolved Problem 09/27/2015 [facility] TUNG Hassan 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 [facility] OTHER SPECIFIED CONGENITAL DEFORMITIES Active [facility] CHRONIC ATRIAL FIBRILLATION Active [facility] Medications Medication Details Route Status Patient Instructions Ordering Provider Order Date Source Hydrocortisone-Aloe 0.5% topical cream 1 appl, Route: TOP, QID, Drug form: CRM, Priority: Now, Start date: 08/15/15 17:00:00, Duration: 30 day, Stop date: 09/14/15 13:00:00 Inactive 08/15/2015 [facility] Aspirin 81 MG Enteric Coated Tablet 81 mg=1 tab, PO, Daily, # 30 tab, 3 Refill(s) Active 08/15/2015 [facility] Morphine 2 mg, 1 mL, Route: IVP, Drug form: INJ, ONCE, Dosing Weight 58.636, kg, Priority: STAT, Start date: 08/15/15 13:13:00, Stop date: 08/15/15 13:13:00Notes: (Same as:MORPhine Sulfate) Inactive 08/15/2015 [facility] Cyclobenzaprine hydrochloride 10 MG Oral Tablet [Flexeril] 10 mg=1 tab, PO, TID, PRN for spasm, X 10 day, # 30 tab, 0 Refill(s) Active 08/15/2015 [facility] Magnesium Sulfate 2 gm, 50 mL, Route: IVPB, Drug form: INJ, Q2H, Dosing Weight 58.636, kg, Total dose=4 gm, Start date: 08/15/15 12:00:00, Duration: 2 doses or times, Stop date: 08/15/15 14:00:00Notes: WASTE: F/P - Sink; E - Municipal Trash Bin Inactive 08/15/2015 [facility] Furosemide 20 MG Oral Tablet [Lasix] 20 mg, 1 tab, Route: PO, Drug form: TAB, Daily, Dosing Weight 58.636, kg, Start date: 08/15/15 9:00:00, Duration: 30 day, Stop date: 09/13/15 9:00:00Notes: (Same as: Lasix) May cause GI upset. Give with food or milk. Inactive 08/15/2015 [facility] carvedilol 3.125 mg, 1 tab, Route: PO, Drug form: TAB, BID, Dosing Weight 58.636, kg, Start date: 08/15/15 9:00:00, Duration: 30 day, Stop date: 09/13/15 17:00:00Notes: Give with food. (Same As: Coreg) Inactive 08/15/2015 [facility] Pramipexole 0.25 mg, 1 tab, Route: PO, Drug form: TAB, TID, Dosing Weight 58.636, kg, Start date: 08/15/15 9:00:00, Duration: 30 day, Stop date: 09/13/15 17:00:00Notes: (Same as: Mirapex) Inactive 08/15/2015 [facility] Synthroid 112 microgram, 1 tab, Route: PO, Drug form: TAB, Q630AM, Dosing Weight 58.636, kg, Start date: 08/15/15 6:30:00, Duration: 30 day, Stop date: 09/13/15 6:30:00Notes: Take 1 hour before or 2 hours after meal; Enteral feeds may interefere with the absorption of this medication.(Same as:Levothroid) Inactive 08/15/2015 [facility] gabapentin 100 MG Oral Capsule 100 mg, 1 cap, Route: PO, Drug form: CAP, TID, Dosing Weight 58.636, kg, Start date: 08/15/15 3:40:00, Duration: 30 day, Stop date: 09/13/15 17:00:00Notes: (Same as: Neurontin) Inactive 08/15/2015 [facility] Carbidopa 25 MG / Levodopa 100 MG Oral Tablet 1 tab, Route: PO, Drug Form: TAB, Dosing Weight 58.636, kg, QID, Start date: 08/14/15 23:20:00, Duration: 30 day, Stop date: 09/13/15 21:00:00Notes: Take with milk or food. (Same As: Sinemet) No Longer Active 08/15/2015 [facility] Morphine 0.25 mg, 0.13 mL, Route: IV, Drug form: INJ, ONCE, Dosing Weight 58.636, kg, Start date: 08/14/15 23:00:00, Stop date: 08/14/15 23:00:00Notes: (Same as:MORPhine Sulfate) Inactive 08/15/2015 [facility] Alprazolam 0.25 MG Oral Tablet 0.25 mg, 1 tab, Route: PO, Drug form: TAB, Q12H, Dosing Weight 58.636, kg, PRN Anxiety, Start date: 08/14/15 22:50:00, Duration: 30 day, Stop date: 09/13/15 22:49:00Notes: With food or milk (Same as: Xanax) No Longer Active 08/15/2015 [facility] Acetaminophen 325 MG / Hydrocodone Bitartrate 10 MG Oral Tablet 1 tab, Route: PO, Drug Form: TAB, Dosing Weight 58.636, kg, Q6H, PRN Pain Score 6-10, Start date: 08/14/15 22:50:00, Duration: 30 day, Stop date: 09/13/15 22:49:00Notes: Do not exceed 4gm/day of acetaminophen. (Same as: [place] 325/10) No Longer Active 08/15/2015 [facility] Morphine 0.25 mg, 0.13 mL, Route: IV, Drug form: INJ, ONCE, Dosing Weight 58.636, kg, Start date: 08/14/15 22:34:00, Stop date: 08/14/15 22:34:00Notes: (Same as:MORPhine Sulfate) Inactive 08/15/2015 [facility] Acetaminophen 325 MG / Hydrocodone Bitartrate 10 MG Oral Tablet [[place] 10/325] 1 tab, Route: PO, Drug Form: TAB, Dosing Weight 58.636, kg, ONCE, Start date: 08/14/15 21:17:00, Stop date: 08/14/15 21:17:00Notes: Do not exceed 4gm/day of acetaminophen. (Same as: [place] 325/10) Inactive 08/15/2015 [facility] Fentanyl 50 microgram, Route: IV, ONCE, Dosing Weight 58.636, kg, Start date: 08/14/15 20:39:00, Stop date: 08/14/15 20:39:00 Inactive 08/15/2015 [facility] Fentanyl 50 microgram, Route: IV, ONCE, Dosing Weight 58.636, kg, Start date: 08/14/15 20:28:00, Stop date: 08/14/15 20:28:00 Inactive 08/15/2015 [facility] Fentanyl 50 microgram, Route: IV, ONCE, Dosing Weight 58.636, kg, Start date: 08/14/15 20:15:00, Stop date: 08/14/15 20:15:00 Inactive 08/15/2015 [facility] Fentanyl 50 microgram, Route: IV, ONCE, Dosing Weight 58.636, kg, Start date: 08/14/15 19:27:00, Stop date: 08/14/15 19:27:00 Inactive 08/15/2015 [facility] Fentanyl 50 microgram, Route: IV, ONCE, Dosing Weight 58.636, kg, Start date: 08/14/15 18:55:00, Stop date: 08/14/15 18:55:00 Inactive 08/15/2015 [facility] Fentanyl 25 microgram, Route: IV, ONCE, Dosing Weight 58.636, kg, Start date: 08/14/15 18:50:00, Stop date: 08/14/15 18:50:00 Inactive 08/15/2015 [facility] Ondansetron 4 mg, 2 mL, Route: IVP, Drug form: INJ, ONCE, Dosing Weight 58.636, kg, PRN Nausea & Vomiting, Start date: 08/14/15 18:02:00Notes: (Same as: Zofran) MEDICATION WASTE Product Size: 4 mg Product Wasted: _0_ mg No Longer Active 08/15/2015 [facility] Flumazenil 0.2 mg, 2 mL, Route: IVP, Drug form: INJ, PRN, Dosing Weight 58.636, kg, PRN Benzodiazepine Reversal, Initial dose, Start date: 08/14/15 18:02:00, Duration: 30 day, Stop date: 09/13/15 19:01:00Notes: (Same as: Romazicon) Inactive 08/15/2015 [facility] Naloxone 0.04 mg, 0.1 mL, Route: IVP, Drug form: INJ, Q2MIN, Dosing Weight 58.636, kg, PRN Narcotic Reversal, Start date: 08/14/15 18:02:00, Duration: 8 doses or times, Stop date: Limited # of timesNotes: Same as Narcan No Longer Active 08/15/2015 [facility] Fentanyl 25 microgram, 0.5 mL, Route: IVP, Drug form: INJ, ONCE, Dosing Weight 58.636, kg, PRN Pain Score 4-6, Start date: 08/14/15 18:02:00Notes: (Same as: Sublimaze) Preservative free. Inactive 08/15/2015 [facility] Hydralazine 10 mg, 0.5 mL, Route: IVP, Drug form: INJ, Q20Min, Dosing Weight 58.636, kg, PRN Elevated BP, Start date: 08/14/15 18:02:00, Duration: 2 doses or times, Stop date: Limited # of timesNotes: (Same as: Apresoline) Push over 5 minutes No Longer Active 08/15/2015 [facility] gabapentin 100 MG Oral Capsule 100 mg=1 cap, PO, TID, # 90 cap, 1 Refill(s) Active 08/14/2015 [facility] normal saline 0.9% IV 1,000 mL 1,000 mL, Rate: 50 ml/hr, Infuse over: 20 hr, Route: IV, Dosing Weight 58.636 kg, Total Volume: 1,000, Start date: 08/14/15 11:24:00, Duration: 30 day, Stop date: 09/13/15 11:23:00 No Longer Active 08/14/2015 [facility] 24 HR tramadol hydrochloride 100 MG Extended Release Tablet 100 mg=1 tab, PO, Q8H, PRN Pain Score 6-10, # 24 tab, 0 Refill(s) Active 03/18/2015 [facility] Carbidopa 25 MG / Levodopa 100 MG Oral Tablet 1 tab, PO, QID, 0 Refill(s) Active 03/18/2015 [facility] carvedilol 12.5 MG Oral Tablet [Coreg] 12.5 mg=1 tab, PO, BID, # 60 tab, 0 Refill(s) Active 03/18/2015 [facility] senna 8.6 mg oral tablet 17.2 mg=2 tab, PO, Q12H, # 12 tab, 0 Refill(s) Active 03/18/2015 [facility] phenytoin 100 mg oral capsule, extended release 100 mg=1 cap, PO, Q12H, PRN Pain Score 6-10, # 30 cap, 0 Refill(s) Active 03/18/2015 [facility] Nystatin 100 UNT/MG Topical Powder 1 appl, TOP, BID, # 15 gm, 0 Refill(s) Active 03/18/2015 [facility] heparin sodium, porcine 2500 UNT/ML Injectable Solution 5000, SUB-Q, Q12H, # 1 IntlUnit, 0 Refill(s) Active 03/18/2015 [facility] 24 HR tramadol hydrochloride 100 MG Extended Release Tablet 100 mg=1 tab, PO, [id number], PRN Pain Score 6-10, # 24 tab, 0 Refill(s) Inactive 03/18/2015 [facility] Acetaminophen 325 MG / Hydrocodone Bitartrate 7.5 MG Oral Tablet [[place] 7.5/325] 1 tab, Route: PO, Drug Form: TAB, Dosing Weight 43.182, kg, Q6H, Start date: 03/17/15 12:00:00, Duration: 30 day, Stop date: 04/16/15 6:00:00Notes: Same as [place] 325-7.5mg Do not exceed 4gm/day of acetaminophen. No Longer Active 03/17/2015 [facility] heparin sodium, porcine 2500 UNT/ML Injectable Solution 5,000 unit, 1 mL, Route: SUB-Q, Drug form: INJ, Q12H, Dosing Weight 43.182, kg, Start date: 03/17/15 12:00:00, Duration: 30 day, Stop date: 04/16/15 0:00:00Notes: porcine heparin No Longer Active 03/17/2015 [facility] Nystatin 100 UNT/MG Topical Powder 1 appl, Route: TOP, BID, Drug form: PWDR, Start date: 03/16/15 9:00:00, Duration: 30 day, Stop date: 04/14/15 17:00:00Notes: (Same as:Mycostatin, Nilstat) For external use only. No Longer Active 03/16/2015 [facility] Enoxaparin 20 mg (0.2 mL) Enoxaparin 20 mg (0.2 mL), 20 mg, 0.2 mL, Drug form: MISC, Route: SUB-Q, [id number], 03/15/15 12:30:00, Duration: 30 day, Stop date: 04/14/15 0:30:00Notes: PLEASE NOTE: Using enoxaparin 30 mg syringe, draw up 0.2 mL and put in injection syringe under IV persaud in sterile conditions. No Longer Active 03/15/2015 [facility] Dextrose 50% Syringe 12.5 gm, 25 mL, Route: IVP, Drug Form: INJ, Dosing Weight 43.182, kg, PRN, PRN Abnormal Lab Result, Start date: 03/15/15 3:58:00, Duration: 30 day, Stop date: 04/14/15 2:57:00, For FSBG 40 mg/dL - 60 mg/dLSpecial Instructions: For FSBG 40 mg/dL - 60 mg/dL Inactive 03/15/2015 [facility] Insulin regular 12 unit, 0.12 mL, Route: SUB-Q, Drug form: SOLN, PRN, Dosing Weight 43.182, kg, PRN Abnormal Lab Result, Start date: 03/15/15 3:58:00, Duration: 30 day, Stop date: 04/14/15 2:57:00, For FSBG >=200 mg/dLSpecial Instructions: For FSBG >=200 mg/dLNotes: (Same as: Humulin R) Roll in palms of hands gently; Do not shake vigorously. "single patient use only" (Restricted to patients requiring a dose > 60 units) Stable for 28 days at room temperature Expires in days from Date Inactive 03/15/2015 [facility] Senokot 17.2 mg, 2 tab, Route: PO, Drug form: TAB, Q12H, Start date: 03/14/15 21:00:00, Duration: 30 day, Stop date: 04/13/15 9:00:00Notes: (Same as: Senokot) No Longer Active 03/15/2015 [facility] Phenytoin 100 mg, 1 cap, Route: PO, Drug form: ERCAP, Q12H, Dosing Weight 43.182, kg, Start date: 03/14/15 21:00:00, Duration: 6 day, Stop date: 03/20/15 9:00:00Notes: (Same as: Dilantin) Do not open, crush, or chew. No Longer Active 03/15/2015 [facility] Ofirmev 1,000 mg, 100 mL, Route: IV, Drug form: INJ, Q6H, Dosing Weight 43.182, kg, for > or=50 kg, Start date: 03/14/15 19:00:00, Duration: 30 day, Stop date: 04/13/15 18:00:00Notes: Infuse over 15 minutes Do not exceed 4gm/day of acetaminophen MEDICATION WASTE Product Size: 1000 mg Product Wasted: ___ mg Inactive 03/15/2015 [facility] sennosides, CORRECTION 1 tab, Route: PO, Dosing Weight 43.182, kg, BID, Start date: 03/14/15 17:00:00, Duration: 30 day, Stop date: 04/13/15 9:00:00 Inactive 03/14/2015 [facility] Sodium Chloride 0.154 MEQ/ML Injectable Solution 500 mL, 500 ml/hr, Infuse Over: 1 hr, Route: IV, 500, Drug form: INJ, ONCE, Priority: STAT, Dosing Weight 43.182 kg, Start date: 03/14/15 15:09:00, Duration: 1 doses or times, Stop date: 03/14/15 15:09:00 Inactive 03/14/2015 [facility] Acetaminophen 650 mg, 2 tab, Route: PO, Drug form: TAB, Q6H, Dosing Weight 43.182, kg, Start date: 03/14/15 12:00:00, Duration: 30 day, Stop date: 04/13/15 6:00:00Notes: Do not exceed 4 gm/day. (Same as: Tylenol) No Longer Active 03/14/2015 [facility] Lovenox 20 mg, 0.2 mL, Route: SUB-Q, Drug form: INJ, [id number], Dosing Weight 43.182, kg, Start date: 03/14/15 10:30:00, Duration: 30 day, Stop date: 04/12/15 22:30:00Notes: (Same as: Lovenox) No Longer Active 03/14/2015 [facility] heparin 5,000 unit, 1 mL, Route: SUB-Q, Drug form: INJ, Q12H, Start date: 03/14/15 10:30:00, Duration: 30 day, Stop date: 04/13/15 9:00:00Notes: porcine heparin Inactive 03/14/2015 [facility] Oxycodone Hydrochloride 5 MG Oral Tablet 5 mg, 1 tab, Route: PO, Drug form: TAB, Q6H, Dosing Weight 43.182, kg, PRN Pain Score 4-6, Start date: 03/14/15 9:40:00, Duration: 30 day, Stop date: 04/13/15 9:39:00Notes: (Same as: Roxicodone) No Longer Active 03/14/2015 [facility] pneumococcal capsular polysaccharide type 1 vaccine / pneumococcal capsular polysaccharide type 10A vaccine / pneumococcal capsular polysaccharide type 11A vaccine / pneumococcal capsular polysaccharide type 12F vaccine / pneumococcal capsular polysacchar 0.5 mL, Route: IM, Drug Form: INJ, Daily, Start date: 03/14/15 9:00:00, Duration: 1 doses or times, Stop date: 03/14/15 9:00:00Notes: (Same as: Pneumovax 23) Refrigerate Inactive 03/14/2015 [facility] influenza virus vaccine, inactivated 0.5 mL, Route: IM, Drug Form: SUSP, Daily, Start date: 03/14/15 9:00:00, Duration: 1 doses or times, Stop date: 03/14/15 9:00:00Notes: (Same as: Fluzone Quadrivalent) For 3 years of age and older (0.5 mL IM) Shake well before use Inactive 03/14/2015 [facility] Lisinopril 5 mg, 1 tab, Route: PO, Drug form: TAB, Daily, Dosing Weight 60, kg, Start date: 03/14/15 9:00:00, Duration: 30 day, Stop date: 04/12/15 9:00:00Notes: (Same as: Prinivil, Zestril) No Longer Active 03/14/2015 [facility] Furosemide 20 MG Oral Tablet [Lasix] 20 mg, 1 tab, Route: PO, Drug form: TAB, Daily, Dosing Weight 60, kg, Start date: 03/14/15 9:00:00, Duration: 30 day, Stop date: 04/12/15 9:00:00Notes: (Same as: Lasix) May cause GI upset. Give with food or milk. No Longer Active 03/14/2015 [facility] Synthroid 112 microgram, 1 tab, Route: PO, Drug form: TAB, Q630AM, Dosing Weight 60, kg, Start date: 03/14/15 6:30:00, Duration: 30 day, Stop date: 04/12/15 6:30:00Notes: Take 1 hour before or 2 hours after meal; Enteral feeds may interefere with the absorption of this medication.(Same as:Levothroid) No Longer Active 03/14/2015 [facility] Benadryl 12.5 mg, 5 mL, Route: PO, Drug form: LIQ, TID, Dosing Weight 43.182, kg, PRN Itching, Start date: 03/14/15 1:48:00, Duration: 30 day, Stop date: 04/13/15 1:47:00Notes: (Same as: Benadryl) No Longer Active 03/14/2015 [facility] Magnesium Sulfate 2 gm, 50 mL, Route: IVPB, Drug form: INJ, ONCE, Dosing Weight 43.182, kg, Total dose=2 gm, Start date: 03/14/15 0:56:00, Duration: 1 doses or times, Stop date: 03/14/15 0:56:00 Inactive 03/14/2015 [facility] Lyrica 25 mg, 1 cap, Route: PO, Drug form: CAP, Q8H, Dosing Weight 43.182, kg, Start date: 03/14/15 0:00:00, Duration: 30 day, Stop date: 04/12/15 16:00:00Notes: (Same as: Lyrica) No Longer Active 03/14/2015 [facility] Tramadol 50 mg, 1 tab, Route: PO, Drug form: TAB, Q6H, Dosing Weight 43.182, kg, Start date: 03/14/15 0:00:00, Duration: 30 day, Stop date: 04/12/15 18:00:00Notes: Not to exceed 400mg/day. (Same As: Ultram) No Longer Active 03/14/2015 [facility] Oxycodone Hydrochloride 5 MG Oral Tablet 5 mg, 1 tab, Route: PO, Drug form: TAB, Q6H, Dosing Weight 43.182, kg, Start date: 03/14/15 0:00:00, Duration: 30 day, Stop date: 04/12/15 18:00:00Notes: (Same as: Roxicodone) Inactive 03/14/2015 [facility] Docusate 100 mg, 1 cap, Route: NG, Drug form: CAP, Q12H, Dosing Weight 60, kg, Start date: 03/13/15 21:00:00, Stop date: 04/12/15 9:00:00Notes: (Same as: Colace) (Do Not Crush) No Longer Active 03/14/2015 [facility] PlasmaLyte A PH-7.4 (Bolus) IV 500 mL, 500 ml/hr, Route: IV, Drug Form: INJ, Dosing Weight 43.182, kg, ONCE, Start date: 03/13/15 20:40:00, Stop date: 03/13/15 20:40:00 Inactive 03/14/2015 [facility] Phenytoin 100 mg, 2 mL, Route: IV, Drug form: INJ, Q8H, Dosing Weight 60, kg, Start date: 03/13/15 19:00:00, Duration: 30 day, Stop date: 04/12/15 16:00:00Notes: (Same as: Dilantin) Do not infuse greater than 5 0 mg/min. MEDICATION WASTE Product Size: 100 mg Product Wasted: ___ mg No Longer Active 03/14/2015 [facility] Pramipexole 0.25 mg, 1 tab, Route: PO, Drug form: TAB, TID, Dosing Weight 60, kg, Start date: 03/13/15 17:00:00, Duration: 30 day, Stop date: 04/12/15 13:00:00Notes: (Same as: Mirapex) No Longer Active 03/13/2015 [facility] Carbidopa 25 MG / Levodopa 100 MG Oral Tablet 1 tab, Route: PO, Drug Form: TAB, Dosing Weight 60, kg, QID, Start date: 03/13/15 17:00:00, Duration: 30 day, Stop date: 04/12/15 13:00:00Notes: Take with milk or food. (Same As: Sinemet) No Longer Active 03/13/2015 [facility] Tylenol 650 mg, 2 tab, Route: PO, Drug form: TAB, Q6H, Dosing Weight 43.182, kg, PRN For Temp > 100.4 F, Start date: 03/13/15 16:27:00, Duration: 30 day, Stop date: 04/12/15 16:26:00Notes: Do not exceed 4 gm/day. (Same as: Tylenol) Inactive 03/13/2015 [facility] Benadryl 12.5 mg, 0.25 mL, Route: IV, Drug form: INJ, ONCE, Dosing Weight 60, kg, Start date: 03/13/15 14:46:00, Stop date: 03/13/15 14:46:00Notes: (Same as: Benadryl) Inactive 03/13/2015 [facility] Spironolactone 25 MG Oral Tablet [Aldactone] 25 mg=1 tab, PO, PRN, # 60 tab, 0 Refill(s) Active 03/13/2015 [facility] lisinopril 5 mg oral tablet 5 mg=1 tab, PO, Daily, # 30 tab, 0 Refill(s) No Longer Active 03/13/2015 [facility] rivaroxaban 15 MG Oral Tablet [Xarelto] 15 mg=1 tab, PO, Daily, 3 Refill(s) No Longer Active 03/13/2015 [facility] Acetaminophen 325 MG / Hydrocodone Bitartrate 10 MG Oral Tablet [[place] 10/325] 1 tab, PO, Q6H, PRN for pain, 0 Refill(s) No Longer Active 03/13/2015 [facility] Levothyroxine Sodium 0.112 MG Oral Tablet [Synthroid] 112 microgram=1 tab, PO, Daily, # 30 tab, 0 Refill(s) Active 03/13/2015 [facility] ALPRAZOLam 0.25 mg oral tablet, disintegrating 0.25 mg=1 tab, PO, Q12H, PRN Anxiety, 0 Refill(s) Active 03/13/2015 [facility] Potassium Chloride 20 MEQ Extended Release Tablet 20 mEq=1 tab, PO, Daily, # 30 tab, 3 Refill(s) Active 03/13/2015 [facility] Carbidopa 25 MG / Levodopa 100 MG Oral Tablet 1 tab, PO, QID, # 120 tab, 0 Refill(s) Active 03/13/2015 [facility] Furosemide 20 MG Oral Tablet [Lasix] 20 mg=1 tab, PO, Daily, # 30 tab, 0 Refill(s) Active 03/13/2015 [facility] pramipexole 0.25 mg oral tablet 0.25 mg=1 tab, PO, TID, # 90 tab, 0 Refill(s) Active 03/13/2015 [facility] Factor 2-7-9-10 Prothrombin Complex Concentrate 2,208 unit + IV bag 1 ea Route: IV, Drug form: INJ, ONCE, Dosing Weight 60, kg, ; Use 100kg max dosing weight for pt >100kg. Max. cumulative dose=50 units/kg/day., Priority: STAT, Start date: 03/13/15 11:16:00, Stop date: 03/13/15 11:16:00Notes: Same as: Kcentra Maximum jyqf=1180 units; Round down dose to the nearest vial size Hematology clinical pharmacist consult required Inactive 03/13/2015 [facility] fosphenytoin 1,200 mg, Route: IVPB, ONCE, Dosing Weight 60, kg, Priority: STAT, Start date: 03/13/15 10:51:00, Stop date: 03/13/15 10:51:00 Inactive 03/13/2015 [facility] Factor 2-7-9-10 Prothrombin Complex Concentrate 2,208 unit + IV bag 1 ea Route: IV, Drug form: INJ, ONCE, Dosing Weight 60, kg, ; Use 100kg max dosing weight for pt >100kg. Max. cumulative dose=50 units/kg/day., Priority: STAT, Start date: 03/13/15 10:49:00, Stop date: 03/13/15 10:49:00Notes: Same as: Kcentra Maximum vqvm=4689 units; Round down dose to the nearest vial size Hematology clinical pharmacist consult required Inactive 03/13/2015 [facility] Zofran 4 mg, Route: IVP, Drug form: INJ, ONCE, kg, Priority: STAT, Start date: 03/13/15 10:08:00, Stop date: 03/13/15 10:08:00 Inactive 03/13/2015 [facility] Morphine 4 mg, Route: IVP, Drug form: INJ, ONCE, kg, Priority: STAT, Start date: 03/13/15 10:08:00, Stop date: 03/13/15 10:08:00 Inactive 03/13/2015 [facility] iodixanol 90 mL, Route: IVP, Drug Form: SOLN, kg, ONCALL, STAT, Start date: 03/13/15 10:03:00, Duration: 1 doses or times, Dose=2.2ml/kg, Max jpwz=718gs -- "To be infused by Radiology Staff ONLY"Special Instructions: Dose=2.2ml/kg, Max ikrg=533ed -- "To be infused by Radiology Staff ONLY" Inactive 03/13/2015 [facility] Allergies, Adverse Reactions, Alerts Substance Category Reaction Severity Reaction type Status Date Reported Comments Source morphine<sup>1</sup> Assertion Drug allergy Active Pt had a generalized rash on 03/13 [facility] Immunizations Immunization Date Given Site Status Last Updated Comments Source influenza virus vaccine, inactivated 03/14/2015 Not Given [facility], TUNG Hassan pneumococcal 23-valent vaccine 03/14/2015 Not Given [facility], TUNG Hassan Results Order Name Results Value Reference Range Date Interpretation Comments Source HEMATOLOGY Eosinophils 4.3 % 0.0 - 4.0 08/15/2015 [facility] HEMATOLOGY Monocytes 6.2 % 2.0 - 12.0 08/15/2015 [facility] HEMATOLOGY Lymphocytes 4.0 % 20.0 - 40.0 08/15/2015 [facility] HEMATOLOGY Basophils 0.3 % 0.0 - 1.0 08/15/2015 [facility] HEMATOLOGY Monocytes # 0.9 K/CMM 0.0 - 0.8 08/15/2015 [facility] HEMATOLOGY Lymphocytes # 0.6 K/CMM 1.0 - 5.5 08/15/2015 [facility] HEMATOLOGY Segs-Bands # 12.1 K/CMM 1.5 - 8.1 08/15/2015 [facility] HEMATOLOGY Segs 85.2 % 45.0 - 75.0 08/15/2015 [facility] HEMATOLOGY Plt Morph Normal (08/15/15 2:00 PM) 08/15/2015 [facility] HEMATOLOGY Eosinophils # 0.6 K/CMM 0.0 - 0.5 08/15/2015 [facility] HEMATOLOGY RBC 4.80 M/CMM 4.20 - 5.40 08/15/2015 [facility] HEMATOLOGY WBC 14.2 K/CMM 3.7 - 10.4 08/15/2015 [facility] HEMATOLOGY Hgb 12.1 g/dL 12.0 - 16.0 08/15/2015 [facility] HEMATOLOGY Hct 39.4 % 36.0 - 48.0 08/15/2015 [facility] HEMATOLOGY [facility] 25.2 pg 27.0 - 31.0 08/15/2015 [facility] HEMATOLOGY MCV 82.2 fL 80.0 - 98.0 08/15/2015 [facility] HEMATOLOGY RDW 14.1 % 11.5 - 14.5 08/15/2015 [facility] HEMATOLOGY MCHC 30.7 g/dL 32.0 - 36.0 08/15/2015 [facility] HEMATOLOGY Platelet 240 K/CMM 133 - 450 08/15/2015 [facility] HEMATOLOGY MPV 9.1 fL 7.4 - 10.4 08/15/2015 [facility] CHEM PANEL Phosphorus 3.1 mg/dL 2.5 - 4.5 08/15/2015 [facility] CHEM PANEL Magnesium Lvl 1.7 mg/dL 1.8 - 2.4 08/15/2015 [facility] ELECTROLYTES AGAP 13.9 meq/L 10.0 - 20.0 08/15/2015 [facility] ELECTROLYTES eGFR 56 mL/min/1.73m2 08/15/2015 Result Comment: The eGFR is calculated using the [...] from the National Kidney Disease Education Program (NKDEP) which additionally recommends that when the eGFR is used in patients with extremes of body mass index for purposes of drug dosing, the eGFR should be multiplied by the estimated BMI. [facility] ELECTROLYTES Calcium Lvl 8.9 mg/dL 8.5 - 10.5 08/15/2015 [facility] ELECTROLYTES Creatinine Lvl 0.93 mg/dL 0.50 - 1.40 08/15/2015 [facility] ELECTROLYTES Glucose Lvl 122 mg/dL 70 - 99 08/15/2015 [facility] ELECTROLYTES BUN 19 mg/dL 7 - 22 08/15/2015 [facility] ELECTROLYTES Chloride Lvl 108 meq/L 95 - 109 08/15/2015 [facility] ELECTROLYTES Potassium Lvl 3.9 meq/L 3.5 - 5.1 08/15/2015 [facility] ELECTROLYTES Sodium Lvl 141 meq/L 135 - 145 08/15/2015 [facility] ELECTROLYTES CO2 23 meq/L 24 - 32 08/15/2015 [facility] HEMATOLOGY Lymphocytes 1.0 % 20.0 - 40.0 08/15/2015 [facility] HEMATOLOGY Atypical Lymphs 0.0 % <=0.0 % 08/15/2015 [facility] HEMATOLOGY Plt Morph Normal (08/15/15 5:26 AM) 08/15/2015 [facility] HEMATOLOGY Monocytes 3.0 % 2.0 - 12.0 08/15/2015 [facility] HEMATOLOGY RBC Morph Normal (08/15/15 5:26 AM) 08/15/2015 [facility] HEMATOLOGY Segs-Bands # 18.7 K/CMM 1.5 - 8.1 08/15/2015 [facility] HEMATOLOGY Lymphocytes # 0.2 K/CMM 1.0 - 5.5 08/15/2015 [facility] HEMATOLOGY Monocytes # 0.6 K/CMM 0.0 - 0.8 08/15/2015 [facility] HEMATOLOGY Segs 54.0 % 45.0 - 75.0 08/15/2015 [facility] HEMATOLOGY Bands 42.0 % 0.0 - 11.0 08/15/2015 [facility] HEMATOLOGY PTT 33.4 s 22.9 - 35.8 08/15/2015 [facility] HEMATOLOGY INR 1.86 0.85 - 1.17 08/15/2015 [facility] HEMATOLOGY PT 21.8 s 12.0 - 14.7 08/15/2015 [facility] HEMATOLOGY Platelet 234 K/CMM 133 - 450 08/15/2015 [facility] HEMATOLOGY Hct 40.0 % 36.0 - 48.0 08/15/2015 [facility] HEMATOLOGY MPV 9.1 fL 7.4 - 10.4 08/15/2015 [facility] HEMATOLOGY MCH 26.5 pg 27.0 - 31.0 08/15/2015 [facility] HEMATOLOGY MCV 82.9 fL 80.0 - 98.0 08/15/2015 [facility] HEMATOLOGY RDW 14.2 % 11.5 - 14.5 08/15/2015 [facility] HEMATOLOGY MCHC 31.9 g/dL 32.0 - 36.0 08/15/2015 [facility] HEMATOLOGY RBC 4.83 M/CMM 4.20 - 5.40 08/15/2015 [facility] HEMATOLOGY Hgb 12.8 g/dL 12.0 - 16.0 08/15/2015 [facility] HEMATOLOGY WBC X 10x3 19.5 K/CMM 3.7 - 10.4 08/15/2015 [facility] BLOOD BANK RESULTS Antibody Scrn Negative (08/14/15 11:28 AM) 08/14/2015 [facility] BLOOD BANK RESULTS ABO/Rh A POS 08/14/2015 [facility] CHEM PANEL B/C Ratio 24 6 - 25 08/14/2015 [facility] CHEM PANEL AGAP 13.9 meq/L 10.0 - 20.0 08/14/2015 [facility] CHEM PANEL Globulin 4.0 g/dL 2.0 - 4.0 08/14/2015 [facility] CHEM PANEL A/G Ratio 0.8 0.7 - 1.6 08/14/2015 [facility] CHEM PANEL eGFR 72 mL/min/1.73m2 08/14/2015 Result Comment: The eGFR is calculated using the [...] from the National Kidney Disease Education Program (NKDEP) which additionally recommends that when the eGFR is used in patients with extremes of body mass index for purposes of drug dosing, the eGFR should be multiplied by the estimated BMI. [facility] CHEM PANEL Calcium Lvl 9.6 mg/dL 8.5 - 10.5 08/14/2015 [facility] CHEM PANEL CO2 27 meq/L 24 - 32 08/14/2015 [facility] CHEM PANEL Chloride Lvl 103 meq/L 95 - 109 08/14/2015 [facility] CHEM PANEL Potassium Lvl 3.9 meq/L 3.5 - 5.1 08/14/2015 [facility] CHEM PANEL Sodium Lvl 140 meq/L 135 - 145 08/14/2015 [facility] CHEM PANEL Creatinine Lvl 0.76 mg/dL 0.50 - 1.40 08/14/2015 [facility] CHEM PANEL BUN 18 mg/dL 7 - 22 08/14/2015 [facility] CHEM PANEL Glucose Lvl 95 mg/dL 70 - 99 08/14/2015 [facility] CHEM PANEL AST 13 unit/L 0 - 37 08/14/2015 [facility] CHEM PANEL Alk Phos 102 unit/L 39 - 136 08/14/2015 [facility] CHEM PANEL ALT 7 unit/L 0 - 65 08/14/2015 [facility] CHEM PANEL Albumin Lvl 3.4 g/dL 3.5 - 5.0 08/14/2015 [facility] CHEM PANEL Total Protein 7.4 g/dL 6.4 - 8.4 08/14/2015 [facility] CHEM PANEL Bili Total 0.5 mg/dL 0.2 - 1.3 08/14/2015 [facility] CHEM PANEL Magnesium Lvl 2.0 mg/dL 1.8 - 2.4 08/14/2015 [facility] HEMATOLOGY MPV 8.8 fL 7.4 - 10.4 08/14/2015 [facility] HEMATOLOGY Platelet 257 K/CMM 133 - 450 08/14/2015 [facility] HEMATOLOGY MCH 25.8 pg 27.0 - 31.0 08/14/2015 [facility] HEMATOLOGY RDW 14.3 % 11.5 - 14.5 08/14/2015 [facility] HEMATOLOGY MCHC 31.2 g/dL 32.0 - 36.0 08/14/2015 [facility] HEMATOLOGY WBC 9.5 K/CMM 3.7 - 10.4 08/14/2015 [facility] HEMATOLOGY RBC 4.83 M/CMM 4.20 - 5.40 08/14/2015 [facility] HEMATOLOGY Hgb 12.4 g/dL 12.0 - 16.0 08/14/2015 [facility] HEMATOLOGY Hct 39.8 % 36.0 - 48.0 08/14/2015 [facility] HEMATOLOGY MCV 82.5 fL 80.0 - 98.0 08/14/2015 [facility] HEMATOLOGY INR 1.91 0.85 - 1.17 08/14/2015 [facility] HEMATOLOGY PT 22.2 s 12.0 - 14.7 08/14/2015 [facility] HEMATOLOGY PTT 38.0 s 22.9 - 35.8 08/14/2015 [facility] HEMATOLOGY Monocytes # 1.5 K/CMM 0.0 - 0.8 08/14/2015 [facility] HEMATOLOGY Eosinophils # 0.4 K/CMM 0.0 - 0.5 08/14/2015 [facility] HEMATOLOGY Lymphocytes # 1.5 K/CMM 1.0 - 5.5 08/14/2015 [facility] HEMATOLOGY Segs-Bands # 6.1 K/CMM 1.5 - 8.1 08/14/2015 [facility] HEMATOLOGY Segs 63.8 % 45.0 - 75.0 08/14/2015 [facility] HEMATOLOGY Lymphocytes 16.0 % 20.0 - 40.0 08/14/2015 [facility] HEMATOLOGY Monocytes 16.3 % 2.0 - 12.0 08/14/2015 [facility] HEMATOLOGY Eosinophils 3.9 % 0.0 - 4.0 08/14/2015 [facility] HEMATOLOGY Basophils # 0.1 K/CMM 0.0 - 0.2 08/14/2015 [facility] HEMATOLOGY Basophils 0.9 % 0.0 - 1.0 08/14/2015 [facility] BLOOD BANK RESULTS RBC product Product available (08/14/15 11:22 AM) 08/14/2015 [facility] Hand 3 views DX Hand 3 views DX EXAM: RIGHT HAND 3 VIEWS DATE: Mar 25, 2015 03:57:00 PM INDICATION: M79.641 Pain in right hand COMPARISON: Right hand series 03/14/2015 TECHNIQUE: PA, lateral and oblique radiographs of the right hand FINDINGS: There is generalized diminished bone mineral density. There is unchanged alignment with early fracture modeling of the mildly displaced comminuted third metacarpal shaft fracture. 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 IMPRESSION: Unchanged alignment with early healing of mildly displaced comminuted third metacarpal shaft fracture. 03/25/2015 - - Read by: Johan Mcghee MD Dictated Date/time: 03/25/15 16:13 Electronically Signed by: Johan Mcghee MD 03/25/15 16:51 FINAL REPORT [facility] Chest 1view DX Chest 1view DX EXAM: XR CHEST 1 VIEW INDICATION: Shallow breathing. COMPARISON: Chest Radiograph performed on 03/14/2015 at 0255 hours. TECHNIQUE: Single AP radiograph of the chest. IMPRESSION: No significant interval detrimental change from prior radiograph. Stable cardiomediastinal silhouette and cardiac pacemaker. Lungs are clear. No consolidation or effusion. Unchanged right distal clavicular fracture and bilateral rib fractures. 03/16/2015 - - Read by: Mic Junior MD Dictated Date/time: 03/17/15 08:27 Electronically Signed by: Mic Junior MD 03/17/15 08:30 FINAL REPORT [facility] CHEM PANEL Magnesium Lvl 2.2 mg/dL 1.8 - 2.4 03/15/2015 [facility] CHEM PANEL Phosphorus 2.2 mg/dL 2.5 - 4.5 03/15/2015 [facility] ELECTROLYTES AGAP 11.7 meq/L 10.0 - 20.0 03/15/2015 [facility] ELECTROLYTES eGFR 59 mL/min/1.73m2 03/15/2015 Result Comment: The eGFR is calculated using the [...] from the National Kidney Disease Education Program (NKDEP) which additionally recommends that when the eGFR is used in patients with extremes of body mass index for purposes of drug dosing, the eGFR should be multiplied by the estimated BMI. [facility] ELECTROLYTES Potassium Lvl 3.7 meq/L 3.5 - 5.1 03/15/2015 [facility] ELECTROLYTES Chloride Lvl 99 meq/L 95 - 109 03/15/2015 [facility] ELECTROLYTES CO2 29 meq/L 24 - 32 03/15/2015 [facility] ELECTROLYTES Calcium Lvl 8.6 mg/dL 8.5 - 10.5 03/15/2015 [facility] ELECTROLYTES Glucose Lvl 99 mg/dL 70 - 99 03/15/2015 [facility] ELECTROLYTES BUN 19 mg/dL 7 - 22 03/15/2015 [facility] ELECTROLYTES Sodium Lvl 136 meq/L 135 - 145 03/15/2015 [facility] ELECTROLYTES Creatinine Lvl 0.9 mg/dL 0.5 - 1.4 03/15/2015 [facility] HEMATOLOGY MPV 9.1 fL 7.4 - 10.4 03/15/2015 [facility] HEMATOLOGY Platelet 193 K/CMM 133 - 450 03/15/2015 [facility] HEMATOLOGY RDW 15.5 % 11.5 - 14.5 03/15/2015 [facility] HEMATOLOGY MCHC 32.1 g/dL 32.0 - 36.0 03/15/2015 [facility] HEMATOLOGY WBC 8.6 K/CMM 3.7 - 10.4 03/15/2015 [facility] HEMATOLOGY MCH 25.7 pg 27.0 - 31.0 03/15/2015 [facility] HEMATOLOGY Hgb 11.5 g/dL 12.0 - 16.0 03/15/2015 [facility] HEMATOLOGY Hct 35.7 % 36.0 - 48.0 03/15/2015 [facility] HEMATOLOGY RBC 4.46 M/CMM 4.20 - 5.40 03/15/2015 [facility] HEMATOLOGY MCV 79.9 fL 80.0 - 98.0 03/15/2015 [facility] HEMATOLOGY Microcyte 1+ *ABN* (03/15/15 3:44 AM) None Seen 03/15/2015 [facility] HEMATOLOGY Eosinophils # 0.9 K/CMM 0.0 - 0.5 03/15/2015 [facility] HEMATOLOGY Segs 68.1 % 45.0 - 75.0 03/15/2015 [facility] HEMATOLOGY Lymphocytes # 0.9 K/CMM 1.0 - 5.5 03/15/2015 [facility] HEMATOLOGY Monocytes # 0.9 K/CMM 0.0 - 0.8 03/15/2015 [facility] HEMATOLOGY Monocytes 10.3 % 2.0 - 12.0 03/15/2015 [facility] HEMATOLOGY Eosinophils 10.8 % 0.0 - 4.0 03/15/2015 [facility] HEMATOLOGY Lymphocytes 10.6 % 20.0 - 40.0 03/15/2015 [facility] HEMATOLOGY Basophils 0.2 % 0.0 - 1.0 03/15/2015 [facility] HEMATOLOGY Segs-Bands # 5.7 K/CMM 1.5 - 8.1 03/15/2015 [facility] PARATHYROID PROFILE Ca Norm WB 1.12 mMol/L 1.05 - 1.25 03/15/2015 [facility] PARATHYROID PROFILE Ca Ion WB 1.08 mMol/L 1.05 - 1.25 03/15/2015 [facility] HEMATOLOGY PTT 33.8 s 22.9 - 35.8 03/14/2015 [facility] HEMATOLOGY PT 16.1 s 12.0 - 14.7 03/14/2015 [facility] HEMATOLOGY INR 1.26 0.85 - 1.17 03/14/2015 [facility] Clavicle DX Clavicle DX EXAM: XR RIGHT CLAVICLE 2 VIEWS DATE: 03/14/2015 at 0843 hours INDICATION: Fracture, upright views COMPARISON: 03/13/2015 at 1510 hours. TECHNIQUE: Upright AP and axial views of the right clavicle FINDINGS: A comminuted fracture of the right distal clavicle is again identified, with mild superior displacement of the lateral fragment, not significantly changed in the upright position. The acromioclavicular joint is not widened. No new or superimposed bony abnormality is identified. IMPRESSION: Comminuted distal clavicle fracture, with superior displacement of the lateral fragment, not significantly changed in the upright position. 03/14/2015 - - Read by: Jammie Stoery MD Dictated Date/time: 03/14/15 09:19 Electronically Signed by: Jammie Storey MD 03/14/15 09:22 FINAL REPORT [facility] CHEM PANEL Magnesium Lvl 1.8 mg/dL 1.8 - 2.4 03/14/2015 [facility] CHEM PANEL Phosphorus 4.1 mg/dL 2.5 - 4.5 03/14/2015 [facility] ELECTROLYTES AGAP 11.7 meq/L 10.0 - 20.0 03/14/2015 [facility] ELECTROLYTES eGFR 46 mL/min/1.73m2 03/14/2015 Result Comment: The eGFR is calculated using the [...] from the National Kidney Disease Education Program (NKDEP) which additionally recommends that when the eGFR is used in patients with extremes of body mass index for purposes of drug dosing, the eGFR should be multiplied by the estimated BMI. [facility] ELECTROLYTES Calcium Lvl 8.8 mg/dL 8.5 - 10.5 03/14/2015 [facility] ELECTROLYTES CO2 31 meq/L 24 - 32 03/14/2015 [facility] ELECTROLYTES Chloride Lvl 104 meq/L 95 - 109 03/14/2015 [facility] ELECTROLYTES Glucose Lvl 130 mg/dL 70 - 99 03/14/2015 [facility] ELECTROLYTES Sodium Lvl 143 meq/L 135 - 145 03/14/2015 [facility] ELECTROLYTES Potassium Lvl 3.7 meq/L 3.5 - 5.1 03/14/2015 [facility] ELECTROLYTES BUN 14 mg/dL 7 - 22 03/14/2015 [facility] ELECTROLYTES Creatinine Lvl 1.1 mg/dL 0.5 - 1.4 03/14/2015 [facility] HEMATOLOGY Monocytes # 0.5 K/CMM 0.0 - 0.8 03/14/2015 [facility] HEMATOLOGY Segs-Bands # 13.7 K/CMM 1.5 - 8.1 03/14/2015 [facility] HEMATOLOGY Lymphocytes # 0.2 K/CMM 1.0 - 5.5 03/14/2015 [facility] HEMATOLOGY Eosinophils 0.6 % 0.0 - 4.0 03/14/2015 [facility] HEMATOLOGY Basophils 0.2 % 0.0 - 1.0 03/14/2015 [facility] HEMATOLOGY Lymphocytes 1.4 % 20.0 - 40.0 03/14/2015 [facility] HEMATOLOGY Monocytes 3.3 % 2.0 - 12.0 03/14/2015 [facility] HEMATOLOGY Segs 94.5 % 45.0 - 75.0 03/14/2015 [facility] HEMATOLOGY Eosinophils # 0.1 K/CMM 0.0 - 0.5 03/14/2015 [facility] HEMATOLOGY Platelet 200 K/CMM 133 - 450 03/14/2015 [facility] HEMATOLOGY MCHC 31.5 g/dL 32.0 - 36.0 03/14/2015 [facility] HEMATOLOGY RDW 15.4 % 11.5 - 14.5 03/14/2015 [facility] HEMATOLOGY MCV 80.8 fL 80.0 - 98.0 03/14/2015 [facility] HEMATOLOGY MCH 25.4 pg 27.0 - 31.0 03/14/2015 [facility] HEMATOLOGY Hct 42.2 % 36.0 - 48.0 03/14/2015 [facility] HEMATOLOGY RBC 5.22 M/CMM 4.20 - 5.40 03/14/2015 [facility] HEMATOLOGY Hgb 13.3 g/dL 12.0 - 16.0 03/14/2015 [facility] HEMATOLOGY WBC 14.5 K/CMM 3.7 - 10.4 03/14/2015 [facility] HEMATOLOGY MPV 9.3 fL 7.4 - 10.4 03/14/2015 [facility] PARATHYROID PROFILE Ca Ion WB 1.08 mMol/L 1.05 - 1.25 03/14/2015 [facility] PARATHYROID PROFILE Ca Norm WB 1.06 mMol/L 1.05 - 1.25 03/14/2015 [facility] Chest 1view DX Chest 1view DX Portable ap semierect chest March 14, 2015 HISTORY: Abnormal chest sounds. Comparison is made with yesterday. FINDINGS: Cardiomediastinal silhouette and life support lines are stable. Costophrenic sulci are sharp. The lungs are clear. CONCLUSION: No significant interval change in the appearance of the chest when compared to prior radiograph. 03/14/2015 - - Read by: Rosa Flores MD Dictated Date/time: 03/14/15 11:01 Electronically Signed by: Rosa Flores MD 03/14/15 11:28 FINAL REPORT [facility] PARATHYROID PROFILE Ca Norm WB 1.04 mMol/L 1.05 - 1.25 03/14/2015 [facility] PARATHYROID PROFILE Ca Ion WB 1.06 mMol/L 1.05 - 1.25 03/14/2015 [facility] CHEM PANEL Phosphorus 3.5 mg/dL 2.5 - 4.5 03/14/2015 [facility] CHEM PANEL Magnesium Lvl 1.6 mg/dL 1.8 - 2.4 03/14/2015 [facility] ELECTROLYTES AGAP 11.4 meq/L 10.0 - 20.0 03/14/2015 [facility] ELECTROLYTES eGFR 54 mL/min/1.73m2 03/14/2015 Result Comment: The eGFR is calculated using the [...] from the National Kidney Disease Education Program (NKDEP) which additionally recommends that when the eGFR is used in patients with extremes of body mass index for purposes of drug dosing, the eGFR should be multiplied by the estimated BMI. [facility] ELECTROLYTES Calcium Lvl 9.1 mg/dL 8.5 - 10.5 03/14/2015 [facility] ELECTROLYTES Chloride Lvl 102 meq/L 95 - 109 03/14/2015 [facility] ELECTROLYTES CO2 30 meq/L 24 - 32 03/14/2015 [facility] ELECTROLYTES Glucose Lvl 141 mg/dL 70 - 99 03/14/2015 [facility] ELECTROLYTES Potassium Lvl 3.4 meq/L 3.5 - 5.1 03/14/2015 [facility] ELECTROLYTES Creatinine Lvl 1.0 mg/dL 0.5 - 1.4 03/14/2015 [facility] ELECTROLYTES BUN 12 mg/dL 7 - 22 03/14/2015 [facility] ELECTROLYTES Sodium Lvl 140 meq/L 135 - 145 03/14/2015 [facility] HEMATOLOGY Lymphocytes 0.7 % 20.0 - 40.0 03/14/2015 [facility] HEMATOLOGY Monocytes # 0.5 K/CMM 0.0 - 0.8 03/14/2015 [facility] HEMATOLOGY Basophils 0.4 % 0.0 - 1.0 03/14/2015 [facility] HEMATOLOGY Eosinophils 0.1 % 0.0 - 4.0 03/14/2015 [facility] HEMATOLOGY Segs 96.2 % 45.0 - 75.0 03/14/2015 [facility] HEMATOLOGY Monocytes 2.6 % 2.0 - 12.0 03/14/2015 [facility] HEMATOLOGY Lymphocytes # 0.1 K/CMM 1.0 - 5.5 03/14/2015 [facility] HEMATOLOGY Segs-Bands # 17.5 K/CMM 1.5 - 8.1 03/14/2015 [facility] HEMATOLOGY Basophils # 0.1 K/CMM 0.0 - 0.2 03/14/2015 [facility] HEMATOLOGY MPV 9.3 fL 7.4 - 10.4 03/14/2015 [facility] HEMATOLOGY RBC 5.33 M/CMM 4.20 - 5.40 03/14/2015 [facility] HEMATOLOGY WBC 18.2 K/CMM 3.7 - 10.4 03/14/2015 [facility] HEMATOLOGY MCH 25.7 pg 27.0 - 31.0 03/14/2015 [facility] HEMATOLOGY RDW 15.2 % 11.5 - 14.5 03/14/2015 [facility] HEMATOLOGY MCHC 31.9 g/dL 32.0 - 36.0 03/14/2015 Result Comment: rechecked. [facility] HEMATOLOGY Hgb 13.7 g/dL 12.0 - 16.0 03/14/2015 [facility] HEMATOLOGY MCV 80.4 fL 80.0 - 98.0 03/14/2015 [facility] HEMATOLOGY Hct 42.8 % 36.0 - 48.0 03/14/2015 [facility] HEMATOLOGY Platelet 219 K/CMM 133 - 450 03/14/2015 [facility] URINE AND STOOL UA Spec Grav >=1.050 *ABN* (10/7/15 8:34 PM) <=1.030 03/14/2015 [facility] URINE AND STOOL Micro? Performed *NA* (03/13/15 8:34 PM) 03/14/2015 [facility] URINE AND STOOL UA [place] Yeast Occasional /HPF None Seen /HPF 03/14/2015 [facility] URINE AND STOOL UA Bacteria Few /HPF None Seen /HPF 03/14/2015 [facility] URINE AND STOOL UA Mucus Few /LPF None Seen /LPF 03/14/2015 [facility] URINE AND STOOL UA Sq Epi Occasional /LPF Few /LPF 03/14/2015 [facility] URINE AND STOOL UA RBC 9 /HPF 0 - 2 03/14/2015 [facility] URINE AND STOOL UA WBC 5 /HPF 0 - 5 03/14/2015 [facility] URINE AND STOOL UA Leuk Est Negative (03/13/15 8:34 PM) Negative 03/14/2015 [facility] URINE AND STOOL UA Nitrite Negative (03/13/15 8:34 PM) Negative 03/14/2015 [facility] URINE AND STOOL UA Bili Negative *NA* (03/13/15 8:34 PM) Negative 03/14/2015 [facility] URINE AND STOOL UA Blood Trace *ABN* (03/13/15 8:34 PM) Negative 03/14/2015 [facility] URINE AND STOOL UA Urobilinogen 2.0 mg/dL 0.1 - 1.0 03/14/2015 [facility] URINE AND STOOL UA Protein 100 mg/dL Negative mg/dL 03/14/2015 [facility] URINE AND STOOL UA Glucose Negative mg/dL Negative mg/dL 03/14/2015 [facility] URINE AND STOOL UA Ketones 10 mg/dL Negative mg/dL 03/14/2015 [facility] URINE AND STOOL UA Color Yellow *NA* (03/13/15 8:34 PM) Yellow 03/14/2015 [facility] URINE AND STOOL UA Turbidity Clear (03/13/15 8:34 PM) Clear 03/14/2015 [facility] URINE AND STOOL UA pH 6.5 5.0 - 8.0 03/14/2015 [facility] HEMATOLOGY PTT 32.0 s 22.9 - 35.8 03/13/2015 [facility] HEMATOLOGY INR 1.59 0.85 - 1.17 03/13/2015 [facility] HEMATOLOGY PT 19.3 s 12.0 - 14.7 03/13/2015 [facility] Clavicle DX Clavicle DX EXAM: XR RIGHT CLAVICLE 2 VIEWS DATE: 03/13/2015 at 1510 hours INDICATION: Fracture COMPARISON: CT chest of 03/13/2015 at 1012 hours. TECHNIQUE: AP and axial views of the right clavicle FINDINGS: There is a comminuted fracture of the distal third of the right clavicle, with superior displacement of the lateral fragment. The appearance is not significantly changed from the recent CT. There is overlying soft tissue swelling. Sternoclavicular joint remains overall aligned. IMPRESSION: Acute, comminuted fracture of the distal third of the right clavicle. 03/13/2015 - - Read by: Jammie Storey MD Dictated Date/time: 03/13/15 16:04 Electronically Signed by: Jammie Storey MD 03/13/15 16:06 FINAL REPORT [facility] Forearm 2 views DX Forearm 2 views DX EXAM: XR RIGHT HAND 3 VIEWS EXAM: XR RIGHT FOREARM 2 VIEWS EXAM: XR RIGHT ELBOW 3 VIEWS DATE: 03/13/2015 at 1503 hours INDICATION: Fracture, postreduction COMPARISON: 03/13/2015 TECHNIQUE: PA, lateral and oblique radiographs of the right hand, AP and lateral radiographs of the right forearm, AP, lateral and oblique radiographs of the right elbow FINDINGS: Overlying cast material obscures bony detail. A comminuted fracture of the middle finger metacarpal is again identified, with minimal apex dorsal angulation in cast. Generalized osteopenia is present. No additional acute bony abnormality is identified at the forearm or the elbow. There is no elbow joint effusion. IMPRESSION: 1. Comminuted fracture of the middle finger metacarpal, with minimal apex dorsal displacement unchanged following casting. 2. No additional acute bony abnormality identified at the right forearm or right elbow. 03/13/2015 - - Read by: Jammie Storey MD Dictated Date/time: 03/13/15 16:49 Electronically Signed by: Jammie Storey MD 03/13/15 16:51 FINAL REPORT [facility] Elbow 2 views DX Elbow 2 views DX EXAM: XR RIGHT HAND 3 VIEWS EXAM: XR RIGHT FOREARM 2 VIEWS EXAM: XR RIGHT ELBOW 3 VIEWS DATE: 03/13/2015 at 1503 hours INDICATION: Fracture, postreduction COMPARISON: 03/13/2015 TECHNIQUE: PA, lateral and oblique radiographs of the right hand, AP and lateral radiographs of the right forearm, AP, lateral and oblique radiographs of the right elbow FINDINGS: Overlying cast material obscures bony detail. A comminuted fracture of the middle finger metacarpal is again identified, with minimal apex dorsal angulation in cast. Generalized osteopenia is present. No additional acute bony abnormality is identified at the forearm or the elbow. There is no elbow joint effusion. IMPRESSION: 1. Comminuted fracture of the middle finger metacarpal, with minimal apex dorsal displacement unchanged following casting. 2. No additional acute bony abnormality identified at the right forearm or right elbow. 03/13/2015 - - Read by: Jammie Storey MD Dictated Date/time: 03/13/15 16:49 Electronically Signed by: Jammie Storey MD 03/13/15 16:51 FINAL REPORT [facility] Hand 3 views DX Hand 3 views DX EXAM: XR RIGHT HAND 3 VIEWS EXAM: XR RIGHT FOREARM 2 VIEWS EXAM: XR RIGHT ELBOW 3 VIEWS DATE: 03/13/2015 at 1503 hours INDICATION: Fracture, postreduction COMPARISON: 03/13/2015 TECHNIQUE: PA, lateral and oblique radiographs of the right hand, AP and lateral radiographs of the right forearm, AP, lateral and oblique radiographs of the right elbow FINDINGS: Overlying cast material obscures bony detail. A comminuted fracture of the middle finger metacarpal is again identified, with minimal apex dorsal angulation in cast. Generalized osteopenia is present. No additional acute bony abnormality is identified at the forearm or the elbow. There is no elbow joint effusion. IMPRESSION: 1. Comminuted fracture of the middle finger metacarpal, with minimal apex dorsal displacement unchanged following casting. 2. No additional acute bony abnormality identified at the right forearm or right elbow. 03/13/2015 - - Read by: Jammie Storey MD Dictated Date/time: 03/13/15 16:49 Electronically Signed by: Jammie Storey MD 03/13/15 16:51 FINAL REPORT [facility] HEMATOLOGY Angle 79 degrees 64 - 80 03/13/2015 [facility] HEMATOLOGY Split Point 0.7 min 03/13/2015 [facility] HEMATOLOGY K-time 0.8 min 0.6 - 2.3 03/13/2015 [facility] HEMATOLOGY R-time 0.8 min 0.4 - 0.7 03/13/2015 [facility] HEMATOLOGY Rapid TEG Sample Type Citrated Whole Blood (03/13/15 9:53 AM) 03/13/2015 [facility] HEMATOLOGY ACT (TEG) 121 s 86 - 118 03/13/2015 [facility] HEMATOLOGY Max Amp 78 mm 52 - 71 03/13/2015 [facility] HEMATOLOGY G-value 17.5 K d/sc 5.0 - 11.6 03/13/2015 [facility] HEMATOLOGY Estimated % Lysis 3.4 % 0.0 - 7.5 03/13/2015 Result Comment: "Significant Findings called to angeles santos_at 03/13/2015 10:59__bypm ___.Read Back OK." [facility] Hand 3 views DX Hand 3 views DX EXAM: XR RIGHT HAND 3 VIEWS DATE: Mar 13, 2015 01:53:00 PM INDICATION: Fracture followup. COMPARISON: Right hand images from outside institution performed earlier today. DISCUSSION: PA, lateral and oblique radiographs of the right hand are submitted for interpretation. The comminuted mid diaphyseal fracture is again noted in the third metacarpal shaft. The dominant distal fragment is displaced posteromedially by one cortical width but not significantly angulated. No other acute bony or articular abnormalities identified. Multifocal osteoarthrosis is present, however, most pronounced at the index finger distal interphalangeal joint. IMPRESSION: Unchanged, mildly displaced, comminuted third metacarpal shaft fracture. 03/13/2015 - - Read by: Manoj Jean MD Dictated Date/time: 03/13/15 14:12 Electronically Signed by: Manoj Jean MD 03/13/15 14:14 FINAL REPORT [facility] Chest/Abdomen/Pelvis w IV contrast CT Chest/Abdomen/Pelvis w IV contrast CT EXAM: CT CHEST WITH CONTRAST EXAM: CT ABDOMEN AND PELVIS WITH CONTRAST TECHNIQUE: Volumetric acquisition of the chest, abdomen and pelvis following intravenous administration of contrast. Delayed imaging was then performed through the kidneys and bladder, using a radiation reduction technique. Axial, coronal and sagittal reformats are provided. DATE: March 13, 2015 at 1012 hours. INDICATION: Pain post trauma COMPARISON: None FINDINGS: Lines and Tubes: None. Lower Neck: Visible portions unremarkable. Thoracic Aorta and Mediastinum: No mediastinal hematoma or thoracic aortic injury. Lungs and Pleura: Bibasilar subsegmental atelectasis is present. Hepatobiliary: There is mild intrahepatic biliary dilation. Gallbladder: Surgically absent. Spleen: Normal. Pancreas: Normal. Adrenals: Normal. Kidneys: A renal cyst and nonobstructing renal stone is seen on the left. Ureters and Bladder: No injury. Reproductive Organs: No injury. Gastrointestinal Tract: No injury Peritoneum and Retroperitoneum: No fluid collections or free air. Abdominal/Pelvic Vasculature: Dense calcifications are seen in the abdominal aorta and its branches. Lymphadenopathy: None. Spine/Bones: A right distal clavicle fracture is present. There are fractures seen in the right posterior ribs 1 through 3, right anterior rib 4, and left posterior ribs 1, 2 and 5. There is a suspected compression fracture versus artifact of the T4 vertebral body, anterosuperior corner. Kyphosis and severe degenerative changes are seen of the entire spine. Total hip replacement is seen on the right with no evidence of hardware failure. Intramedullary octavia fixation of a left intertrochanteric femur fracture is present with fracture line still evident and signs of healing. Soft Tissues: Unremarkable. IMPRESSION: 1. Right distal clavicle fracture. 2. Fracture of right posterior ribs 1 - 3, right anterior rib 4, and left posterior ribs 1, 2 and 5. 3. Suspected fracture versus artifact of the T4 vertebral body, please correlate for point tenderness. 03/13/2015 - - This report was dictated by a Spinner Operator/Fellow. I have personally reviewed the images as well as the Resident's interpretation and agree with the findings. Read by: Betzy Arrieta MD Resident: Betzy Arrieta MD Dictated Date/time: 03/13/15 11:43 Electronically Signed by: Manoj Jean MD 03/13/15 12:30 FINAL REPORT [facility] Brain wo contrast CT Brain wo contrast CT EXAM: CT BRAIN WITHOUT CONTRAST. DATE: Mar 13, 2015 10:15:00 AM INDICATION: Pain Post Trauma COMPARISON: None available. TECHNIQUE: Contiguous axial images of the brain were obtained from the skull base to the vertex without IV contrast. FINDINGS: Areas of encephalomalacia in the occipital lobes and in the left middle and inferior frontal gyrus are identified. No signs of acute cortical infarct or parenchymal hemorrhage are demonstrated. The ventricles and sulci are prominent as a result of volume loss. There are atherosclerotic changes at the carotid siphons. The sinuses, orbits and mastoids are unremarkable. IMPRESSION: 1. No acute traumatic injury. 2. Areas of encephalomalacia in the left frontal lobe and both occipital lobes. 03/13/2015 - - Read by: Chen Garrett Dictated Date/time: 03/13/15 11:52 Electronically Signed by: Chen Garrett 03/13/15 11:56 FINAL REPORT [facility] Chest 1view DX Chest 1view DX EXAM: XR CHEST 1 VIEW DATE: March 13, 2015 at 0941 hours INDICATION: Pain Post Trauma COMPARISON: None TECHNIQUE: Single AP view of the chest DISCUSSION: There are streaky opacities seen in the right upper lobe. An AICD is seen with leads intact. There is a probable small apical pneumothorax on the right, though this could be due to artifact. There is a fracture of the posterior ribs 1 and probable 2 as it is very difficult to visualize and may also be artifact. There is a distal clavicle fracture on the right. The aortic knob is calcified. IMPRESSION: 1. Streaky opacities in the right upper lobe consistent with atelectasis. 2. Distal clavicle fracture on the right. 3. Fracture posterior rib 1 and probably rib 2. 4. Probable small apical pneumothorax on the right. 03/13/2015 - - This report was dictated by a Spinner Operator/Fellow. I have personally reviewed the images as well as the Resident's interpretation and agree with the findings. Read by: Betzy Arrieta MD Resident: Betzy Arrieta MD Dictated Date/time: 03/13/15 11:32 Electronically Signed by: Manoj Jean MD 03/13/15 12:28 FINAL REPORT [facility] Vital Signs Vital Sign Value Date Comments Source Weight 54.545 09/24/2015 [facility] BMI Calculated 20.01 09/24/2015 [facility] Height 165.1 cm 09/24/2015 [facility] Systolic (mm Hg) 115 08/15/2015 [facility] Diastolic (mm Hg) 52 08/15/2015 [facility] Systolic (mm Hg) 91 08/15/2015 [facility] Diastolic (mm Hg) 50 08/15/2015 [facility] Respitory Rate 28 08/15/2015 [facility] Temperature Oral (F) 97.7 F 08/15/2015 [facility] Respitory Rate 29 08/15/2015 [facility] Height 165.1 cm 08/15/2015 [facility] Weight 58.636 08/15/2015 [facility] BMI Calculated 21.51 08/15/2015 [facility] Temperature Oral (F) 97.4 F 08/15/2015 [facility] Respitory Rate 18 08/15/2015 [facility] Systolic (mm Hg) 103 08/15/2015 [facility] Diastolic (mm Hg) 54 08/15/2015 [facility] Temperature Oral (F) 98.9 F 08/15/2015 [facility] Height 165.1 cm 08/14/2015 [facility] BMI Calculated 21.51 08/14/2015 [facility] Weight 58.636 08/14/2015 [facility] Temperature Oral (F) 98.2 F 03/18/2015 [facility] Systolic (mm Hg) 119 03/18/2015 [facility] Diastolic (mm Hg) 68 03/18/2015 [facility] Respitory Rate 20 03/18/2015 [facility] Respitory Rate 20 03/18/2015 [facility] Systolic (mm Hg) 130 03/18/2015 [facility] Diastolic (mm Hg) 75 03/18/2015 [facility] Temperature Oral (F) 97.8 F 03/18/2015 [facility] Heart Rate 70 03/18/2015 [facility] Systolic (mm Hg) 139 03/18/2015 [facility] Diastolic (mm Hg) 84 03/18/2015 [facility] Respitory Rate 20 03/18/2015 [facility] Heart Rate 70 03/18/2015 [facility] Temperature Oral (F) 97.6 F 03/18/2015 [facility] Heart Rate 70 03/18/2015 [facility] Height 152 cm 03/16/2015 [facility] BMI Calculated 18.59 03/13/2015 [facility] Height 152.4 cm 03/13/2015 [facility] Weight 43.182 03/13/2015 [facility] BMI Calculated 17.61 03/13/2015 [facility] Weight 40.909 03/13/2015 [facility] Height 152.4 cm 03/13/2015 [facility] Weight 60 03/13/2015 [facility] Encounters Location Location Details Encounter Type Encounter Number Reason For Visit Attending Provider ADM Date DC Date Status Source [facility] Inpatient [id number] Jose North 03/13/2015 03/18/2015 [facility] [id number] Aroldo Bonner 03/25/2015 03/26/[address] [facility] Inpatient [id number] Michelle Barber 08/14/2015 08/15/2015 [facility] Outpatient [id number] Michelle Barber 09/24/2015 09/25/2015 [facility] Procedures Procedure Code Date Perfomer Comments Source
--- OUTSIDE RECORDS SUMMARY | 2018-08-25 18:41 | XMS REPORT | Summary of Care ---
Author Author [facility] Organization [facility] Address Unknown Phone Unavailable Encounter HQ Hipolito(FIN) [id number] Date(s): 03/25/15 - 03/25/15 [facility] [place] [address] [place] [phone] Discharge Disposition: Home Attending Physician: Aroldo Bonner DO Vital Signs No data available for this section Problem List Condition Effective Dates Status Health Status Informant A-fib(Confirmed) Resolved Anxiety(Confirmed) Resolved Cardiac Resolved pacemaker(Confirmed) CHF - Congestive Resolved heart failure(Confirmed) Closed hip Resolved fracture(Confirmed)1 CVA (cerebral Resolved vascular accident)(Confirmed) Dementia(Confirmed) Resolved Parkinson's Resolved disease(Confirmed) 1bilateral Allergies, Adverse Reactions, Alerts Substance Reaction Severity Status morphine1 Active 1Pt had a generalized rash on 03/13 Medications No data available for this section Results No data available for this section Immunizations Vaccine Date Refusal Reason influenza virus vaccine, inactivated 03/14/15 Patient Refuses pneumococcal 23-valent vaccine 03/14/15 Patient Refuses Procedures No data available for this section Social History Social History Type Response Smoking Status Never smoker; Exposure to Tobacco Smoke None; Cigarette Smoking Last 365 Days No; Reg Smoking Cessation Counseling No Assessment and Plan No data available for this section
--- OUTSIDE RECORDS SUMMARY | 2018-08-25 18:42 | XMS REPORT | Summary of Care ---
Author Author [facility] Organization [facility] Address Unknown Phone Unavailable Encounter GERRI Mcmillan(ERVIN) [id number] Date(s): 09/24/15 - 09/24/[address] Discharge Disposition: Home Attending Physician: Michelle Barber MD Referring Physician: Michelle Barber MD Vital Signs Most recent to 1 oldest [Reference Range]: Height 165.1 cm (09/24/15 7:42 AM) Weight 54.545 kg (09/24/15 7:42 AM) Body Mass Index 20.01 m2 (09/24/15 7:42 AM) Problem List Condition Effective Dates Status Health Status Informant A-fib(Confirmed) Resolved Anxiety(Confirmed) Resolved Cardiac Resolved pacemaker(Confirmed) CHF - Congestive Resolved heart failure(Confirmed) Closed hip Resolved fracture(Confirmed)1 CVA (cerebral Resolved vascular accident)(Confirmed) Dementia(Confirmed) Resolved Parkinson's Resolved disease(Confirmed) 1bilateral Allergies, Adverse Reactions, Alerts Substance Reaction Severity Status NKDA Active Medications No data available for this section [...]
--- OUTSIDE RECORDS SUMMARY | 2018-08-25 18:42 | XMS REPORT | Summary of Care ---
Author Author [facility] Organization [facility] Address Unknown Phone Unavailable Encounter GERRI Mcmillan(ERVIN) [id number] Date(s): 08/14/15 - 08/15/15 [facility] [address] [employer] provided by [employer] [facility] [place] [address]- Discharge Disposition: Home Attending Physician: Michelle Barber MD Admitting Physician: Michelle Barber MD Referring Physician: Michelle Barber MD Vital Signs 1 2 3 Most recent to oldest [Reference Range]: 165.1 cm (08/15/15 7:47 AM) 165.1 cm (08/14/15 11:22 AM) Height 97.7 DegF (08/15/15 8:40 AM) 97.4 DegF (08/15/15 5:33 AM) 98.9 DegF (08/15/15 3:12 AM) Temperature Oral [96.4-99.1 DegF] 115/52 mmHg (08/15/15 3:59 PM) 91/50 mmHg (08/15/15 11:28 AM) 103/54 mmHg (08/15/15 5:30 AM) Blood Pressure [90-140/60-90 mmHg] 28 BRMIN *HI* (08/15/15 11:28 AM) 29 BRMIN *HI* (08/15/15 8:05 AM) 18 BRMIN (08/15/15 5:30 AM) Respiratory Rate [14-20 BRMIN] 58.636 kg (08/15/15 7:47 AM) 58.636 kg (08/14/15 11:22 AM) Weight 21.51 m2 (08/15/15 7:47 AM) 21.51 m2 (08/14/15 11:22 AM) Body Mass Index Problem List Condition Effective Dates Status Health Status Informant A-fib(Confirmed) Resolved Anxiety(Confirmed) Resolved Cardiac Resolved pacemaker(Confirmed) CHF - Congestive Resolved heart failure(Confirmed) Closed hip Resolved fracture(Confirmed)1 CVA (cerebral Resolved vascular accident)(Confirmed) Dementia(Confirmed) Resolved Parkinson's Resolved disease(Confirmed) 1bilateral Allergies, Adverse Reactions, Alerts Substance Reaction Severity Status NKDA Active Medications acetaminophen-hydrocodone 325 mg-10 mg oral tablet 1 tab, Route: PO, Drug Form: TAB, Dosing Weight 58.636, kg, Q6H, PRN Pain Score 6-10, Start date: 08/14/15 22:50:00, Duration: 30 day, Stop date: 09/13/15 22:49 :00 Notes: Do not exceed 4gm/day of acetaminophen. (Same as: Oberlin 325/10) Start Date: 08/14/15 Stop Date: 08/15/15 Status: Discontinued ALPRAZOLam 0.25 mg oral tablet 0.25 mg, 1 tab, Route: PO, Drug form: TAB, Q12H, Dosing Weight 58.636, kg, PRN A nxiety, Start date: 08/14/15 22:50:00, Duration: 30 day, Stop date: 09/13/15 22: 49:00 Notes: With food or milk(Same as: Xanax) Start Date: 08/14/15 Stop Date: 08/15/15 Status: Discontinued aspirin 81 mg tablet, enteric coated 81 mg=1 tab, PO, Daily, # 30 tab, 3 Refill(s) Start Date: 08/15/15 Stop Date: 12/13/15 Status: Ordered carbidopa-levodopa 25 mg-100 mg oral tablet 1 tab, Route: PO, Drug Form: TAB, Dosing Weight 58.636, kg, QID, Start date: 02/20 23:20:00, Duration: 30 day, Stop date: 09/13/15 21:00:00 Notes: Take with milk or food. (Same As: Sinemet) Start Date: 08/14/15 Stop Date: 08/15/15 Status: Discontinued carvedilol 3.125 mg, 1 tab, Route: PO, Drug form: TAB, BID, Dosing Weight 58.636, kg, Start date: 08/15/15 9:00:00, Duration: 30 day, Stop date: 09/13/15 17:00:00 Notes: Give with food. (Same As: Coreg) Start Date: 08/15/15 Stop Date: 08/15/15 Status: Discontinued fentaNYL 50 microgram, Route: IV, ONCE, Dosing Weight 58.636, kg, Start date: 08/14/15 20 :15:00, Stop date: 08/14/15 20:15:00 Start Date: 08/14/15 Stop Date: 08/14/15 Status: Completed fentaNYL 25 microgram, Route: IV, ONCE, Dosing Weight 58.636, kg, Start date: 08/14/15 18 :50:00, Stop date: 08/14/15 18:50:00 Start Date: 08/14/15 Stop Date: 08/14/15 Status: Completed fentaNYL 50 microgram, Route: IV, ONCE, Dosing Weight 58.636, kg, Start date: 08/14/15 18 :55:00, Stop date: 08/14/15 18:55:00 Start Date: 08/14/15 Stop Date: 08/14/15 Status: Completed fentaNYL 50 microgram, Route: IV, ONCE, Dosing Weight 58.636, kg, Start date: 08/14/15 19 :27:00, Stop date: 08/14/15 19:27:00 Start Date: 08/14/15 Stop Date: 08/14/15 Status: Completed fentaNYL 50 microgram, Route: IV, ONCE, Dosing Weight 58.636, kg, Start date: 08/14/15 20 :39:00, Stop date: 08/14/15 20:39:00 Start Date: 08/14/15 Stop Date: 08/14/15 Status: Completed fentaNYL 50 microgram, Route: IV, ONCE, Dosing Weight 58.636, kg, Start date: 08/14/15 20 :28:00, Stop date: 08/14/15 20:28:00 Start Date: 08/14/15 Stop Date: 08/14/15 Status: Completed fentaNYL 25 microgram, 0.5 mL, Route: IVP, Drug form: INJ, ONCE, Dosing Weight 58.636, kg , PRN Pain Score 4-6, Start date: 08/14/15 18:02:00 Notes: (Same as: Sublimaze) Preservative free. Start Date: 08/14/15 Stop Date: 08/14/15 Status: Completed Flexeril 10 mg oral tablet 10 mg=1 tab, PO, TID, PRN for spasm, X 10 day, # 30 tab, 0 Refill(s) Start Date: 08/15/15 Stop Date: 08/25/15 Status: Ordered flumazenil 0.2 mg, 2 mL, Route: IVP, Drug form: INJ, PRN, Dosing Weight 58.636, kg, PRN Elias zodiazepine Reversal, Initial dose, Start date: 08/14/15 18:02:00, Duration: 30 day, Stop date: 09/13/15 19:01:00 Notes: (Same as: Romazicon) Start Date: 08/14/15 Stop Date: 08/14/15 Status: Discontinued gabapentin 100 mg oral capsule 100 mg, 1 cap, Route: PO, Drug form: CAP, TID, Dosing Weight 58.636, kg, Start d ate: 08/15/15 3:40:00, Duration: 30 day, Stop date: 09/13/15 17:00:00 Notes: (Same as: Neurontin) Start Date: 08/15/15 Stop Date: 08/15/15 Status: Discontinued gabapentin 100 mg oral capsule 100 mg=1 cap, PO, TID, # 90 cap, 1 Refill(s) Start Date: 08/14/15 Status: Ordered hydrALAZINE 10 mg, 0.5 mL, Route: IVP, Drug form: INJ, Q20Min, Dosing Weight 58.636, kg, PRN Elevated BP, Start date: 08/14/15 18:02:00, Duration: 2 doses or times, Stop da te: Limited # of times Notes: (Same as: Apresoline)Push over 5 minutes Start Date: 08/14/15 Stop Date: 08/15/15 Status: Discontinued Hydrocortisone-Aloe 0.5% topical cream 1 appl, Route: TOP, QID, Drug form: CRM, Priority: Now, Start date: 08/15/15 17: 00:00, Duration: 30 day, Stop date: 09/14/15 13:00:00 Start Date: 08/15/15 Stop Date: 08/15/15 Status: Discontinued Lasix 20 mg oral tablet 20 mg, 1 tab, Route: PO, Drug form: TAB, Daily, Dosing Weight 58.636, kg, Start date: 08/15/15 9:00:00, Duration: 30 day, Stop date: 09/13/15 9:00:00 Notes: (Same as: Lasix) May cause GI upset. Give with food or milk. Start Date: 08/15/15 Stop Date: 08/15/15 Status: Discontinued magnesium sulfate 2 gm, 50 mL, Route: IVPB, Drug form: INJ, Q2H, Dosing Weight 58.636, kg, Total d ose=4 gm, Start date: 08/15/15 12:00:00, Duration: 2 doses or times, Stop date: 08/15/15 14:00:00 Notes: WASTE: F/P - Sink; E - Municipal Trash Bin Start Date: 08/15/15 Stop Date: 08/15/15 Status: Completed morphine Sulfate 2 mg, 1 mL, Route: IVP, Drug form: INJ, ONCE, Dosing Weight 58.636, kg, Priority : STAT, Start date: 08/15/15 13:13:00, Stop date: 08/15/15 13:13:00 Notes: (Same as:MORPhine Sulfate) Start Date: 08/15/15 Stop Date: 08/15/15 Status: Completed morphine Sulfate 0.25 mg, 0.13 mL, Route: IV, Drug form: INJ, ONCE, Dosing Weight 58.636, kg, Sta rt date: 08/14/15 23:00:00, Stop date: 08/14/15 23:00:00 Notes: (Same as:MORPhine Sulfate) Start Date: 08/14/15 Stop Date: 08/14/15 Status: Completed morphine Sulfate 0.25 mg, 0.13 mL, Route: IV, Drug form: INJ, ONCE, Dosing Weight 58.636, kg, Sta rt date: 08/14/15 22:34:00, Stop date: 08/14/15 22:34:00 Notes: (Same as:MORPhine Sulfate) Start Date: 08/14/15 Stop Date: 08/14/15 Status: Discontinued naloxone 0.04 mg, 0.1 mL, Route: IVP, Drug form: INJ, Q2MIN, Dosing Weight 58.636, kg, AR N Narcotic Reversal, Start date: 08/14/15 18:02:00, Duration: 8 doses or times, Stop date: Limited # of times Notes: Same as Narcan Start Date: 08/14/15 Stop Date: 08/15/15 Status: Discontinued Oberlin 10/325 oral tablet 1 tab, Route: PO, Drug Form: TAB, Dosing Weight 58.636, kg, ONCE, Start date: 21:17:00, Stop date: 08/14/15 21:17:00 Notes: Do not exceed 4gm/day of acetaminophen. (Same as: Oberlin 325/10) Start Date: 08/14/15 Stop Date: 08/14/15 Status: Completed normal saline 0.9% IV 1,000 mL 1,000 mL, Rate: 50 ml/hr, Infuse over: 20 hr, Route: IV, Dosing Weight 58.636 kg , Total Volume: 1,000, Start date: 08/14/15 11:24:00, Duration: 30 day, Stop aria e: 09/13/15 11:23:00 Start Date: 08/14/15 Stop Date: 08/15/15 Status: Discontinued ondansetron 4 mg, 2 mL, Route: IVP, Drug form: INJ, ONCE, Dosing Weight 58.636, kg, PRN Naus ea & Vomiting, Start date: 08/14/15 18:02:00 Notes: (Same as: Severino) MEDICATION WASTE Product Size: 4 mgProduct Was lisa: _0_ mg Start Date: 08/14/15 Stop Date: 08/15/15 Status: Discontinued pramipexole 0.25 mg, 1 tab, Route: PO, Drug form: TAB, TID, Dosing Weight 58.636, kg, Start date: 08/15/15 9:00:00, Duration: 30 day, Stop date: 09/13/15 17:00:00 Notes: (Same as: Mirapex) Start Date: 08/15/15 Stop Date: 08/15/15 Status: Discontinued Synthroid 112 microgram, 1 tab, Route: PO, Drug form: TAB, Q630AM, Dosing Weight 58.636, k g, Start date: 08/15/15 6:30:00, Duration: 30 day, Stop date: 09/13/15 6:30:00 Notes: Take 1 hour before or 2 hours after meal; Enteral feeds may interefere wi th the absorption of this medication.(Same as:Levothroid) Start Date: 08/15/15 Stop Date: 08/15/15 Status: Discontinued Results BLOOD BANK RESULTS 1 2 3 Most recent to oldest [Reference Range]: A POS *Unknown* (08/14/15 11:28 AM) ABO/Rh Negative (08/14/15 11:28 AM) Antibody Scrn Product available (08/14/15 11:22 AM) RBC product ELECTROLYTES 1 2 3 Most recent to oldest [Reference Range]: 141 mEq/L (08/15/15 5:26 AM) 140 mEq/L (08/14/15 11:28 AM) Sodium Lvl [135-145 mEq/L] 3.9 mEq/L (08/15/15:26 AM) 3.9 mEq/L (08/14/15 11:28 AM) Potassium Lvl [3.5-5.1 mEq/L] 108 mEq/L (08/15/15 5:26 AM) 103 mEq/L (08/14/15 11:28 AM) Chloride Lvl [95-109 mEq/L] 23 mEq/L *LOW* (08/15/15:26 AM) 27 mEq/L (08/14/15 11:28 AM) CO2 [24-32 mEq/L] 13.9 mEq/L (08/15/15:26 AM) 13.9 mEq/L (08/14/15 11:28 AM) AGAP [10.0-20.0 mEq/L] CHEM PANEL 1 2 3 Most recent to oldest [Reference Range]: 0.93 mg/dL (08/15/15 5:26 AM) 0.76 mg/dL (08/14/15 11:28 AM) Creatinine Lvl [0.50-1.40 mg/dL] 56 mL/min/1.73m2 1 *NA* (08/15/15 5:26 AM) 72 mL/min/1.73m2 2 *NA* (08/14/15 11:28 AM) eGFR 19 mg/dL (08/15/15:26 AM) 18 mg/dL (08/14/15 11:28 AM) BUN [7-22 mg/dL] 24 (08/14/15 11:28 AM) B/C Ratio [6-25] 122 mg/dL *HI* (08/15/15:26 AM) 95 mg/dL (08/14/15 11:28 AM) Glucose Lvl [70-99 mg/dL] 7.4 g/dL (08/14/15: AM) Total Protein [6.4-8.4 g/dL] 3.4 g/dL *LOW* (08/14/15: AM) Albumin Lvl [3.5-5.0 g/dL] 4.0 g/dL (08/14/15: AM) Globulin [2.0-4.0 g/dL] 0.8 (08/14/15:28 AM) A/G Ratio [0.7-1.6] 8.9 mg/dL (08/15/15:26 AM) 9.6 mg/dL (08/14/15 11:28 AM) Calcium Lvl [8.5-10.5 mg/dL] 3.1 mg/dL (08/15/15:26 AM) Phosphorus [2.5-4.5 mg/dL] 1.7 mg/dL *LOW* (08/15/15:26 AM) 2.0 mg/dL (08/14/15 11:28 AM) Magnesium Lvl [1.8-2.4 mg/dL] 7 unit/L (08/14/15:28 AM) ALT [0-65 unit/L] 13 unit/L (08/14/15 11:28 AM) AST [0-37 unit/L] 102 unit/L (08/14/15 11:28 AM) Alk Phos [39-136 unit/L] 0.5 mg/dL (08/14/15 11:28 AM) Bili Total [0.2-1.3 mg/dL] 1Result Comment: The eGFR is calculated [...] be mul tiplied by the estimated BMI. HEMATOLOGY 1 2 3 Most recent to oldest [Reference Range]: 14.2 K/CMM *HI* (08/15/15 2:00 PM) 19.5 K/CMM *HI* (08/15/15 5:26 AM) 9.5 K/CMM (08/14/15 11:28 AM) WBC [3.7-10.4 K/CMM] 4.80 M/CMM (08/15/15 2:00 PM) 4.83 M/CMM (08/15/15 5:26 AM) 4.83 M/CMM (08/14/15 11:28 AM) RBC [4.20-5.40 M/CMM] 12.1 g/dL (08/15/15 2:00 PM) 12.8 g/dL (08/15/15 5:26 AM) 12.4 g/dL (08/14/15 11:28 AM) Hgb [12.0-16.0 g/dL] 39.4 % (08/15/15 2:00 PM) 40.0 % (08/15/15 5:26 AM) 39.8 % (08/14/15 11:28 AM) Hct [36.0-48.0 %] 82.2 fL (08/15/15 2:00 PM) 82.9 fL (08/15/15 5:26 AM) 82.5 fL (08/14/15 11:28 AM) MCV [80.0-98.0 fL] 25.2 pg *LOW* (08/15/15 2:00 PM) 26.5 pg *LOW* (08/15/15 5:26 AM) 25.8 pg *LOW* (08/14/15 11:28 AM) MCH [27.0-31.0 pg] 30.7 g/dL *LOW* (08/15/15 2:00 PM) 31.9 g/dL *LOW* (08/15/15:26 AM) 31.2 g/dL *LOW* (08/14/15 11:28 AM) MCHC [32.0-36.0 g/dL] 14.1 % (08/15/15 2:00 PM) 14.2 % (08/15/15 5:26 AM) 14.3 % (08/14/15 11:28 AM) RDW [11.5-14.5 %] 240 K/CMM (08/15/15 2:00 PM) 234 K/CMM (08/15/15:26 AM) 257 K/CMM (08/14/15 11:28 AM) Platelet [133-450 K/CMM] 9.1 fL (08/15/15 2:00 PM) 9.1 fL (08/15/15 5:26 AM) 8.8 fL (08/14/15 11:28 AM) MPV [7.4-10.4 fL] 85.2 % *HI* (08/15/15 2:00 PM) 54.0 % (08/15/15 5:26 AM) 63.8 % (08/14/15 11:28 AM) Segs [45.0-75.0 %] 42.0 % *HI* (08/15/15 5:26 AM) Bands [0.0-11.0 %] 4.0 % *LOW* (08/15/15 2:00 PM) 1.0 % *LOW* (08/15/15 5:26 AM) 16.0 % *LOW* (08/14/15 11:28 AM) Lymphocytes [20.0-40.0 %] 0.0 % (08/15/15 5:26 AM) Atypical Lymphs [<=0.0 %] 6.2 % (08/15/15 2:00 PM) 3.0 % (08/15/15 5:26 AM) 16.3 % *HI* (08/14/15 11:28 AM) Monocytes [2.0-12.0 %] 4.3 % *HI* (08/15/15 2:00 PM) 3.9 % (08/14/15 11:28 AM) Eosinophils [0.0-4.0 %] 0.3 % (08/15/15 2:00 PM) 0.9 % (08/14/15 11:28 AM) Basophils [0.0-1.0 %] 12.1 K/CMM *HI* (08/15/15 2:00 PM) 18.7 K/CMM *HI* (08/15/15 5:26 AM) 6.1 K/CMM (08/14/15 11:28 AM) Segs-Bands # [1.5-8.1 K/CMM] 0.6 K/CMM *LOW* (08/15/15 2:00 PM) 0.2 K/CMM *LOW* (08/15/15 5:26 AM) 1.5 K/CMM (08/14/15 11:28 AM) Lymphocytes # [1.0-5.5 K/CMM] 0.9 K/CMM *HI* (08/15/15 2:00 PM) 0.6 K/CMM (08/15/15 5:26 AM) 1.5 K/CMM *HI* (08/14/15 11:28 AM) Monocytes # [0.0-0.8 K/CMM] 0.6 K/CMM *HI* (3/10/16 2:00 PM) 0.4 K/CMM (08/14/15 11:28 AM) Eosinophils # [0.0-0.5 K/CMM] 0.1 K/CMM (08/14/15 11:28 AM) Basophils # [0.0-0.2 K/CMM] Normal (08/15/15 5:26 AM) RBC Morph Normal (08/15/15 2:00 PM) Normal (08/15/15 5:26 AM) Plt Morph 21.8 seconds *HI* (08/15/15 5:26 AM) 22.2 seconds *HI* (08/14/15 11:28 AM) PT [12.0-14.7 seconds] 1.86 *HI* (08/15/15 5:26 AM) 1.91 *HI* (08/14/15 11:28 AM) INR [0.85-1.17] 33.4 seconds (08/15/15 5:26 AM) 38.0 seconds *HI* (08/14/15 11:28 AM) PTT [22.9-35.8 seconds] Immunizations Vaccine Date Refusal Reason influenza virus [...]
== END 2018-08-25 19:30 | disposition short-term general hospital (02) ==
LOC: ER 18:36
DX: R09.89 Other specified symptoms and signs involving the circulatory and respiratory systems (principal)

== ENCOUNTER 2019-03-06 17:40 | Emergency (ER) | payer MEDICARE, OTHER ==
[~2019-03-06] VITALS: Ht 165.1 cm; Wt 61.7 kg
[2019-03-06 20:16] LABS: BASOPHILS # (AUTO) 0.1 (0.0-0.1); BASOPHILS % 0.6 % (0.0-1.0); EOSINOPHILS # (AUTO) 0.4 (0.0-0.4); EOSINOPHILS % 5.3 % (0.0-6.0); HEMATOCRIT 33.8 % (34.2-44.1); HEMOGLOBIN 10.7 g/dL (12.0-16.0); LYMPHOCYTES % 12.3 % (18.0-39.1); MEAN CORPUSCULAR HGB CONC 31.7 g/dL (31-35); MEAN CORPUSCULAR VOLUME 85.1 fL (81-99); MONOCYTES # (AUTO) 1.2 (0.2-0.8); MONOCYTES % 14.5 % (4.4-11.3); NEUTROPHILS # (AUTO) 5.6 (2.1-6.9); NEUTROPHILS % 66.9 % (38.7-80.0); PLATELET COUNT 299 x10e3/uL (140-360); RED BLOOD COUNT 3.97 x10e6/uL (3.6-5.1); RED CELL DISTRIBUTION WIDTH 15.5 % (11.7-14.4)
[2019-03-06 20:34] LABS: ALBUMIN 2.3 g/dL (3.5-5.0); ALBUMIN/GLOBULIN RATIO 0.6 (0.8-2.0); ALKALINE PHOSPHATASE 79 IU/L (40-150); ANION GAP 12.7 mmol/L (8-16); BLOOD UREA NITROGEN 19 mg/dL (7-26); BUN/CREATININE RATIO 33 (6-25); CALCIUM 8.8 mg/dL (8.4-10.2); CARBON DIOXIDE 21 mmol/L (22-29); CHLORIDE 104 mmol/L (98-107); CREATININE, SERUM 0.57 mg/dL (0.57-1.11); EST GLOMERULAR FILTRATION RATE > 60 ML/MIN (60-); GLUCOSE 91 mg/dL (74-118); POTASSIUM 3.7 mmol/L (3.5-5.1); SODIUM 134 mmol/L (136-145)
[2019-03-06 20:39] LABS: ALANINE AMINOTRANSFERASE < 6 IU/L (0-55)
[2019-03-06 20:53] LABS: BILIRUBIN,URINE NEGATIVE (NEGATIVE); CLARITY,URINE SL CLOUDY (CLEAR); COLOR,URINE YELLOW (YELLOW); KETONES,URINE NEGATIVE (NEGATIVE); LEUKOCYTE ESTERASE ,URINE NEGATIVE (NEGATIVE); NITRITE,URINE NEGATIVE (NEGATIVE); PROTEIN,URINE DIPSTICK TRACE (NEGATIVE); URINE UROBILINOGEN 0.2 mg/dL (0.2 - 1)
--- NOTE | 2019-03-06 20:59 | Diagnostic Imaging Report ---
EXAMINATION: Head CT without contrast. HISTORY:Altered mental status. COMPARISON:Report of CT brain from 03/13/2015, prior images are not available for comparison at the time of interpretation. TECHNIQUE: Multidetector axial images were obtained from the foramen magnum to the vertex without contrast. The images were reconstructed using brain and bone algorithms. Thin section brain images were reformatted into coronal and sagittal planes. Dose modulation, iterative reconstruction, and/or weight based adjustment of the mA/kV was utilized to reduce the radiation dose to as low as reasonably achievable. Intravenous contrast: None IMAGE QUALITY: Suboptimal evaluation due to motion artifacts. FINDINGS: Skull/scalp: No lytic or blastic. lesions. No surgical changes. Parenchyma: Suboptimal evaluation due to motion artifacts, despite the limitation no gross acute hemorrhage or mass. Nonspecific bilateral frontoparietal confluent and patchy periventricular, subcortical and deep white matter hypodensity are likely related to small vessel ischemic changes. Cortical-based hypodensity in bilateral parieto-occipital region and left middle frontal gyrus represents possible chronic vascular insult as mentioned in prior report from 03/13/2015.. Arteries: No density suggestive of thrombosis. Atherosclerotic calcification in bilateral carotid siphon and V4 segment of the vertebral arteries. Dural sinuses: No abnormal density suggestive of thrombosis. Ventricles: Moderate compensated dilatation due to volume loss. No acute hydrocephalus. Extra-axial spaces: Suboptimal evaluation due to motion artifacts despite the limitation no gross abnormality. Brain volume: Generalized age-related cerebral volume loss. Craniocervical junction: No mass, Chiari malformation, or basilar invagination. Sella: No mass. Paranasal/mastoid sinuses: Imaged portions unremarkable. IMPRESSION: 1. Suboptimal evaluation due to motion artifacts, despite the limitation no gross acute intracranial hemorrhage. 2. 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 3. Generalized age-related cerebral volume loss. Signed by: Dr. Ling Jones M.D. on 03/06/2019 8:55 PM
[2019-03-06 21:06] LABS: EPITHELIAL CELLS,URINE FEW /LPF
[2019-03-06] MEDS ORDERED: FENTANYL CITRATE/PF 100MCG/2 ML INJ ONE (21:19)
[2019-03-06] MEDS ORDERED: FENTANYL CITRATE/PF 100MCG/2 ML INJ IV ONE (21:30)
--- NOTE | 2019-03-06 21:53 | Diagnostic Imaging Report ---
EXAM: CT Pelvis WITHOUT contrast INDICATION: Hip pain COMPARISON: None. TECHNIQUE: Pelvis were scanned utilizing a multidetector helical scanner from the iliac crest to the pubic symphysis without administration of IV contrast. Coronal and sagittal reformations were obtained. Routine protocol was performed. IV CONTRAST: None ORAL CONTRAST: None COMPLICATIONS: None RADIATION DOSE: Total DLP: 912 mGy*cm Estimated effective dose: (DLP x 0.015 x size factor) mSv CTDIvol has been reviewed. It is below the limits set by the Radiation Protocol Committee (RPC). Dose modulation, iterative reconstruction, and/or weight based adjustment of the mA/kV was utilized to reduce the radiation dose to as low as reasonably achievable. FINDINGS: Evaluation of the pelvis is limited due to metallic streak artifact from the bilateral femoral and right hip hardware. LINES and TUBES: None. GI TRACT: Marked volume of stool in rectum and mild rectal wall thickening. Sigmoid diverticuli without evidence of diverticulitis. KIDNEYS: Inferior aspects of the kidneys are included, and there is a nonobstructed 0.3 cm calculus in the minor calyx in the left renal inferior pole. PELVIC ORGANS/BLADDER: Uterus absent. Bladder unremarkable no adnexal masses. LYMPH NODES: No lymphadenopathy. VESSELS: Vascular calcifications in the abdominal aorta and major branches and femoral arteries. PERITONEUM / RETROPERITONEUM: No free air or fluid. BONES: A curvilinear solid density courses craniocaudally along the posterior aspect of the right hip arthroplasty hardware (series 8 image 91). Degenerative changes in the spine, pelvis, and left hip. Left femoral octavia and screw fixation intact, no displaced fractures, although alignment and evaluation is limited due to suboptimal positioning. Low bone mineral density. SOFT TISSUES: Increased soft tissue density within the right gluteal subcutaneous soft tissues overlying the right ischial tuberosity and edema in the left proximal posterior thigh soft tissues. No fluid collections. IMPRESSION: 1. Marked stool burden in the rectum and moderate colonic stool burden, concerning for fecal impaction with early findings of stercoral colitis. 2. Soft tissue edema in the bilateral posterior gluteal, and left proximal posterior thigh soft tissues, worse on the left, suspect due to chronic recumbency. No obvious fluid collections. 3. Suspect displaced right hip arthroplasty cup liner. Right hip arthroplasty alignment intact. Evaluation of left hip alignment is limited due to suboptimal positioning. Recommend bilateral hip radiographs if there is concern for hip fracture or hardware failure. 4. Distal colonic diverticulosis without obvious diverticulitis. Signed by: Kevin Hunter DO on 03/06/2019 9:50 PM
--- NOTE | 2019-03-07 01:38 | Diagnostic Imaging Report ---
HIPS BILAT 3-4VWS (+/- PELVIS) - 3 views HISTORY: Pain. COMPARISON: Pelvis CT 03/06/2019 FINDINGS: Pelvic osseous structures partially obscured by lower abdominal bowel gas. Right total hip arthroplasty in normal alignment. Linear hyperdensity along the distal posterior aspect of the right hip may represent displaced acetabular cup liner. Left proximal femoral fixation hardware intact with normal hardware and osseous alignment, and healed left proximal femoral fracture. Degenerative changes in the lower lumbar spine, left hip, and pelvis. Low bone mineral density. IMPRESSION: No radiographic evidence of acute displaced fracture. Bones and metallic hardware in normal alignment. Curvilinear hyperdensity on the posteromedial aspect of the right hip hemiarthroplasty may represent displaced acetabular cup liner. Low bone mineral density. Signed by: Kevin Hunter DO on 03/07/2019 1:35 AM
--- NOTE | 2019-03-07 02:40 | NUR ---
[facility] PHONE LINES DOWN, [facility] CALLED FOR TRANSPORT
[2019-03-07 03:28] VITALS: BP 164/74
== END 2019-03-07 03:30 ==
LOC: ER 17:40
DX: M25.552 Pain in left hip (principal); S39.012A Strain of muscle, fascia and tendon of lower back, initial encounter; R60.9 Edema, unspecified; G20 Parkinson's disease; F02.80 Dementia in other diseases classified elsewhere, unspecified severity, without behavioral disturbance, psychotic disturbance, mood disturbance, and anxiety; I10 Essential (primary) hypertension; E11.9 Type 2 diabetes mellitus without complications; I50.9 Heart failure, unspecified; J44.9 Chronic obstructive pulmonary disease, unspecified; Z95.0 Presence of cardiac pacemaker
CPT/HCPCS: 36415; 70450; 72192; 73522; 80053; 81001; 85025; 96374; 99284; J3010